=== PATIENT | male | born 1970 | race American Indian/Alaskan Native ===

== ENCOUNTER 2016-07-13 10:17 | Emergency (ER) | payer SELFPAY ==
[2016-07-13 11:32] LABS: Basophils % (Auto) 0.5 % (0.0-1.8); Eosinophils % (Auto) 2.1 % (0.0-4.3); Hematocrit 45.5 % (35.5-45.6); Mean Corpuscular HGB Conc 33 % (32-34); Mean Corpuscular Hemoglobin 30 pg (28-32); Mean Corpuscular Volume 91 fl (84-94); Platelet Count 221 K/mm3 (140-440); Red Blood Count 5.01 M/mm3 (3.65-5.03); Red Cell Distribution Width 12.6 % (13.2-15.2); White Blood Count 5.8 K/mm3 (4.5-11.0)
[2016-07-13 11:37] LABS: Alanine Aminotransferase 13 units/L (7-56); Albumin 3.9 g/dL (3.9-5); Albumin/Globulin Ratio 1.2 %; Alkaline Phosphatase 44 units/L (35-129); Anion Gap 15 mmol/L; Bilirubin,Total 0.4 mg/dL (0.1-1.2); Blood Urea Nitrogen 11 mg/dL (9-20); Calcium 8.8 mg/dL (8.4-10.2); Carbon Dioxide 26 mmol/L (22-30); Chloride 97.7 mmol/L (98-107); Glucose 292 mg/dL (75-100); Lipase 170 units/L (13-60); Potassium 4.2 mmol/L (3.6-5.0); Sodium 134 mmol/L (137-145); Total Protein 7.2 g/dL (6.3-8.2)
[2016-07-13 12:02] LABS: Bacteria,Urine 1+ /HPF (Negative); Bilirubin,Urine NEG (Negative); Blood,Urine NEG (Negative); Ketones,Urine NEG (Negative); Leukocyte Esterase,Urine TR (Negative); Mucus,Urine FEW /HPF; Nitrite,Urine NEG (Negative); Protein,Urine <15 mg/dL mg/dL (Negative); Urobilinogen,Urine < 2.0 mg/dL (<2.0)
--- NOTE | 2016-07-13 17:12 | Emergency Department Report ---
HPI - General Chief Complaint: Abdominal Pain Time Seen by Provider: 07/13/16 16:12 - HPI HPI: This is a 46-year-old -[place] male who presents to the emergency department from home with complaint of some lower abdominal discomfort that started yesterday and occurred today as well but has since resolved. He also complains of some difficulty with urination that on on for "a minute" that is supposed to represent a few months. He says he is able to urinate some but it only dribbles out that he denies any discharge, dysuria, nausea, vomiting, fever , back pain. He has not taken anything for symptoms prior to presentation. He has a past medical history of [id number] diabetes. He recently switched jobs and does not have insurance for another 30 days and therefore does not currently have a primary care doctor. No recent travel or sick contacts at home. ED Past Medical Hx - Past Medical History Previous Medical History?: Yes Hx Diabetes: Yes - Surgical History Past Surgical History?: No - Social History Smoking Status: Never Smoker Substance Use Type: Alcohol ED Review of Systems ROS: Stated complaint: ABD PAIN /FREQUENT URINATION/URINE NOT COMING OUT Other details as noted in HPI Comment: All other systems reviewed and negative Constitutional: denies: chills, fever Eyes: denies: eye pain, eye discharge, vision change ENT: denies: ear pain, throat pain Respiratory: denies: cough, shortness of breath, wheezing Cardiovascular: denies: chest pain, palpitations Gastrointestinal: abdominal pain. denies: nausea, vomiting Genitourinary: other (retention of urine). denies: discharge Musculoskeletal: denies: back pain, joint swelling, arthralgia Skin: denies: rash, lesions Physical Exam - Physical Exam Vital Signs: Vital Signs 07/13/16 10:55 Temperature 98.1 F Pulse Rate 88 Respiratory 18 Rate Blood Pressure 159/109 O2 Sat by Pulse 99 Oximetry Physical Exam: GENERAL: The patient is well-developed well-nourished. HEENT: Normocephalic. Atraumatic. Extraocular motions are intact. Patient has moist mucous membranes. Pupils equal reactive to light bilaterally. NECK: Supple. Trachea is midline. CHEST/LUNGS: Clear to auscultation. There is no respiratory distress noted. HEART/CARDIOVASCULAR: Regular. There is no tachycardia. There is no gallop rub or murmur. ABDOMEN: Abdomen is soft, nontender. Patient has normal bowel sounds. There is no abdominal distention. SKIN: There is no rash. There is no edema. There is no diaphoresis. NEURO: The patient is awake, alert, and oriented. The patient is cooperative. The patient has no focal neurologic deficits. The patient has normal speech. MUSCULOSKELETAL: There is no tenderness or deformity. There is no limitation range of motion. There is no evidence of acute injury. ED Course Vital Signs 07/13/16 10:55 Temperature 98.1 F Pulse Rate 88 Respiratory 18 Rate Blood Pressure 159/109 O2 Sat by Pulse 99 Oximetry ED Medical Decision Making - Lab Data Result diagrams: 07/13/16 11:05 07/13/16 11:05 - Radiology Data Radiology results: report reviewed Bilateral renal and bladder ultrasound does not show any kidney stones, hydronephrosis, bladder abnormalities. - Medical Decision Making 46-year-old male presents with some lower abdominal discomfort that has since resolved and some intermittent and/or chronic difficulty with urination. He has no pain, hematuria and is able to urinate but appears to dribble out sometimes or feels that he is not completely voiding. However the patient was able to easily leave a urine sample here. A bilateral renal and bladder ultrasound was done that does not show any bladder distention due to retained urine or any renal or bladder abnormalities. Vital signs stable throughout his ED course. Patient's labs are unremarkable including no signs of leukocytosis, negative belly labs, no urinary tract infection or significant hematuria. Patient will be discharged home to follow up with primary care and urology. He will be encouraged to return to the ER with any worsening of symptoms or any acute distress. - Differential Diagnosis hydronephrosis, UTI, nephrolithiasis, BPH Critical Care Time: No Critical care attestation.: If time is entered above; I have spent that time in minutes in the direct care of this critically ill patient, excluding procedure time. ED Disposition Clinical Impression: Difficulty urinating Hypertension Qualifiers: Hypertension type: essential hypertension Qualified Code(s): I10 - Essential ( primary) hypertension Abdominal pain Qualifiers: Abdominal location: lower abdomen, unspecified Qualified Code(s): R10.30 - Lower abdominal pain, unspecified Disposition: DISCHARGED TO HOME OR SELFCARE Is pt being admited?: No Condition: Stable Instructions: Hypertension (ED), Abdominal Pain (ED) Additional Instructions: Please follow-up with a primary care doctor in the next few days. Try to stay away from foods that are high in salt and caffeinated products in order to help with your blood pressure. I referral for a local urologist, Dr. Faustin, to follow up regarding your difficulty urinating. Return to the emergency department with any worsening of your symptoms or any acute distress. Referrals: PRIMARY CAREMD [Primary Care Provider] - 3-5 Days ARIANNA FAUSTIN MD [Staff Physician] - 3-5 Days [facility] [Outside] - 3-5 Days Forms: Work/School Release Form(ED)
--- NOTE | 2016-07-13 19:15 | Ultrasound Report ---
FINAL REPORT EXAM: US RENAL BILAT HISTORY: Pain in the lower abdomen. Urinary retention. TECHNIQUE: Ultrasound of the kidneys PRIORS: None. FINDINGS: Examination the kidneys demonstrates both to be normal in size and have normal cortical echogenicity and thickness. The right and left kidneys measure 10.4 cm and 11.9 cm in craniocaudal length, respectively. No evidence for calculi, hydronephrosis, or solid mass is seen in either kidney. The urinary bladder shows no intraluminal abnormality or wall thickening. Incidental note is made of increased echogenicity throughout the liver consistent with a mildly fatty liver. IMPRESSION: Negative ultrasound of the kidneys and bladder. Incidental mild fatty liver
[2016-07-13] MEDS ORDERED: LOPRESSOR PO ONE (19:50)
[2016-07-13 20:26] VITALS: BP 176/101
== END 2016-07-13 20:33 | disposition home or self-care (01) ==
LOC: ED 10:17
DX: R10.30 Lower abdominal pain, unspecified (principal); I10 Essential (primary) hypertension; R30.0 Dysuria; E11.9 Type 2 diabetes mellitus without complications
CPT/HCPCS: 36415; 76770; 80053; 81001; 82962; 83690; 85025

== ENCOUNTER 2017-09-10 09:17 | Inpatient (IN) | payer OTHER ==
[2017-09-10 09:48] LABS: Basophils % (Auto) 0.4 % (0.0-1.8); Eosinophils % (Auto) 0.8 % (0.0-4.3); Hemoglobin 14.5 gm/dl (11.8-15.2); Lymphocytes # (Auto) 1.5 K/mm3 (1.2-5.4); Lymphocytes % (Auto) 24.8 % (13.4-35.0); Mean Corpuscular HGB Conc 34 % (32-34); Mean Corpuscular Hemoglobin 30 pg (28-32); Mean Corpuscular Volume 90 fl (84-94); Monocytes # (Auto) 0.5 K/mm3 (0.0-0.8); Monocytes % (Auto) 7.7 % (0.0-7.3); Platelet Count 185 K/mm3 (140-440); Red Blood Count 4.77 M/mm3 (3.65-5.03); Red Cell Distribution Width 12.3 % (13.2-15.2)
[2017-09-10 10:10] LABS: BUN/Creatinine Ratio 11; Blood Urea Nitrogen 16 mg/dL (9-20); Calcium 8.7 mg/dL (8.4-10.2); Hemolysis Index 4
[2017-09-10] MEDS ORDERED: NACL 0.9% 500 ML 500 ML IV ONE (10:39)
[2017-09-10] MEDS ORDERED: BABY ASPIRIN PO ONE (10:40)
--- NOTE | 2017-09-10 10:40 | Emergency Department Report ---
ED Syncope HPI - General Chief Complaint: Syncope Stated Complaint: SNYCOPE Time Seen by Provider: 09/10/17 10:30 Source: patient, family, RN notes reviewed Exam Limitations: no limitations - History of Present Illness Initial Comments: This is a 47-year-old male who is unknown to this provider previously. Past medical history includes diabetes, hypertension, obesity. He does not have a local primary care doctor and he endorses that he is not currently compliant with his outpatient medications. He presents to the ER with 2 episodes of syncope today. 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 Prior to the event, there was no headache , neck pain, chest pain, abdominal pain, shortness of breath. He reports no convulsive activity that he can recall. After the event, he was getting "checked out" reports that he stood up very quickly, and then "passed out" again. The patient denies DVT, pulmonary embolus risk factors. He denies sudden thunderclap headache, chest pain, neck pain or neck stiffness. Timing/Prior Episodes: multiple episodes today Precipitating Factors: Positive: blurred vision, lightheadedness Context: other (workign) Loss of Consciousness: brief (seconds) Current Symptoms: back to normal, other (patient currently denies all symptoms at this time.). denies: blurred vision, chest pain, diaphoresis, dizziness, headache, injury, lightheadedness, loss of bladder control, loss of bowel control, motionless, nausea, pale, shallow/rapid breathing, weak/absent pulse, weakness - Related Data Allergies/Adverse Reactions: Allergies No Known Allergies Allergy (Unverified 07/13/16 10:55) ED Review of Systems ROS: Stated complaint: SNYCOPE Other details as noted in HPI Comment: All other systems reviewed and negative ED Past Medical Hx - Past Medical History Previous Medical History?: Yes Hx Hypertension: Yes Hx Diabetes: Yes - Surgical History Past Surgical History?: No - Social History Smoking Status: Never Smoker Substance Use Type: None ED Physical Exam - General Limitations: No Limitations General appearance: alert, in no apparent distress - Head Head exam: Present: atraumatic, normocephalic - Eye Eye exam: Present: normal appearance, PERRL, EOMI, other (visual acuity intact to finger counting, color perception, reading at a close distance). Absent: nystagmus - ENT ENT exam: Present: normal exam, normal orophraynx, mucous membranes moist, normal external ear exam - Neck Neck exam: Present: normal inspection, full ROM - Respiratory Respiratory exam: Present: normal lung sounds bilaterally. Absent: respiratory distress - Cardiovascular Cardiovascular Exam: Present: regular rate, normal rhythm, normal heart sounds. Absent: bradycardia, tachycardia, irregular rhythm, systolic murmur, diastolic murmur, rubs, gallop - GI/Abdominal GI/Abdominal exam: Present: soft, normal bowel sounds. Absent: distended, tenderness, guarding, rebound, rigid, pulsatile mass - Rectal Rectal exam: Present: deferred - Extremities Exam Extremities exam: Present: normal inspection, full ROM, normal capillary refill. Absent: tenderness, pedal edema, joint swelling, calf tenderness - Back Exam Back exam: Present: normal inspection, full ROM. Absent: tenderness, CVA tenderness (R), paraspinal tenderness, vertebral tenderness - Neurological Exam Neurological exam: Present: alert, oriented X3, CN II-XII intact, other ( Extraocular movements intact. Tongue midline. No facial droop. Facial sensation intact to light touch in the V1, V2, V3 distribution bilaterally. 5 and 5 strength in 4 extremities.. Sensation is intact to light touch in 4 extremities.). Absent: motor sensory deficit - Psychiatric Psychiatric exam: Present: normal affect, normal mood - Skin Skin exam: Present: warm, dry, intact, normal color. Absent: rash ED Course Vital Signs 09/10/17 09/10/17 09:25 10:16 Temperature 98.4 F Pulse Rate 92 H Respiratory 18 20 Rate Blood Pressure 147/96 O2 Sat by Pulse 99 Oximetry ED Medical Decision Making - Lab Data Result diagrams: 09/10/17 09:34 09/10/17 09:34 Vital Signs 09/10/17 09/10/17 09:25 10:16 Temperature 98.4 F Pulse Rate 92 H Respiratory 18 20 Rate Blood Pressure 147/96 O2 Sat by Pulse 99 Oximetry Lab Results 09/10/17 09/10/17 09/10/17 Range/Units 09:34 09:34 10:49 WBC 6.0 (4.5-11.0) K/mm3 RBC 4.77 (3.65-5.03) M/mm3 Hgb 14.5 (11.8-15.2) gm/dl Hct 43.0 (35.5-45.6) % MCV 90 (84-94) fl MCH 30 (28-32) pg MCHC 34 (32-34) % RDW 12.3 L (13.2-15.2) % Plt Count 185 (140-440) K/mm3 Lymph % (Auto) 24.8 (13.4-35.0) % Haines % (Auto) 7.7 H (0.0-7.3) % Eos % (Auto) 0.8 (0.0-4.3) % Baso % (Auto) 0.4 (0.0-1.8) % Lymph # 1.5 (1.2-5.4) K/mm3 Haines # 0.5 (0.0-0.8) K/mm3 Eos # 0.0 (0.0-0.4) K/mm3 Baso # 0.0 (0.0-0.1) K/mm3 Seg Neutrophils % 66.3 (40.0-70.0) % Seg Neutrophils # 4.0 (1.8-7.7) K/mm3 Sodium 136 L (137-145) mmol/L Potassium 4.3 (3.6-5.0) mmol/L Chloride 97.7 L (98-107) mmol/L Carbon Dioxide 26 (22-30) mmol/L Anion Gap 17 mmol/L BUN 16 (9-20) mg/dL Creatinine 1.5 (0.8-1.5) mg/dL Estimated GFR > 60 ml/min BUN/Creatinine Ratio 11 % Glucose 355 H (75-100) mg/dL Calcium 8.7 (8.4-10.2) mg/dL Magnesium 1.70 (1.7-2.3) mg/dL Troponin T < 0.010 (0.00-0.029) ng/mL TSH (0.270-4.200) mlU/mL 09/10/17 Range/Units 10:49 WBC (4.5-11.0) K/mm3 RBC (3.65-5.03) M/mm3 Hgb (11.8-15.2) gm/dl Hct (35.5-45.6) % MCV (84-94) fl MCH (28-32) pg MCHC (32-34) % RDW (13.2-15.2) % Plt Count (140-440) K/mm3 Lymph % (Auto) (13.4-35.0) % Haines % (Auto) (0.0-7.3) % Eos % (Auto) (0.0-4.3) % Baso % (Auto) (0.0-1.8) % Lymph # (1.2-5.4) K/mm3 Haines # (0.0-0.8) K/mm3 Eos # (0.0-0.4) K/mm3 Baso # (0.0-0.1) K/mm3 Seg Neutrophils % (40.0-70.0) % Seg Neutrophils # (1.8-7.7) K/mm3 Sodium (137-145) mmol/L Potassium (3.6-5.0) mmol/L Chloride (98-107) mmol/L Carbon Dioxide (22-30) mmol/L Anion Gap mmol/L BUN (9-20) mg/dL Creatinine (0.8-1.5) mg/dL Estimated GFR ml/min BUN/Creatinine Ratio % Glucose (75-100) mg/dL Calcium (8.4-10.2) mg/dL Magnesium (1.7-2.3) mg/dL Troponin T (0.00-0.029) ng/mL TSH 1.060 (0.270-4.200) mlU/mL - EKG Data -: EKG Interpreted by [place] EKG shows normal: sinus rhythm - EKG Data When compared to previous EKG there are: previous EKG unavailable 09/10/17 11:45 Nonspecific EKG, not a STEMI, normal axis, atrial enlargements no prior for comparison - Medical Decision Making Differential diagnosis, including but not limited to: Orthostasis, vagal event, heat stroke, heat-related illness, structural cardiac disease, arrhythmia Assessment and plan: 47-year-old male, multiple cardiovascular risk factors, 2 episodes of syncope today, reports working outside in the hot weather, however also reports that he has worked outside in the hot weather previously. No headache or neck pain, no historical features to suggest subarachnoid hemorrhage , has a [place] Coma Scale of 15, with an anion score of 0, unremarkable neurologic examination, and no headache. Therefore, do not feel that patient requires emergent imaging of the brain. No pulmonary embolus or DVT risk factors, low risk by well's criteria, PERC negative. Case was presented to the Hospital physician, Dr. Ferraro, who accepted the patient to the medical service for further evaluation of syncope. Critical care attestation.: If time is entered above; I have spent that time in minutes in the direct care of this critically ill patient, excluding procedure time. ED Disposition Clinical Impression: Syncope Qualifiers: Encounter type: initial encounter Disposition: DC-09 OP ADMIT IP TO THIS HOSP Is pt being admited?: Yes Does the pt Need Aspirin: Yes Condition: Good Instructions: Syncope (ED) Referrals: PRIMARY CARE,MD [Primary Care Provider] - 3-5 Days
[2017-09-10] MEDS ORDERED: D50W (25GM) Syringe IV PRN (13:54)
[2017-09-10] MEDS ORDERED: ZOFRAN IV PRN (13:55)
[2017-09-10] MEDS ORDERED: TYLENOL PO PRN (13:55)
[2017-09-10] MEDS ORDERED: NORCO 5/325 PO PRN (13:55)
[2017-09-10] MEDS ORDERED: REGLAN IV PRN (13:55)
[2017-09-10] MEDS ORDERED: AMBIEN PO PRN (13:55)
[2017-09-10] MEDS ORDERED: MORPHINE IV PRN (13:55)
[2017-09-10] MEDS ORDERED: MIRALAX 3350 PO PRN (13:55)
--- NOTE | 2017-09-10 14:01 | History and Physical Report ---
History of Present Illness Date of examination: 09/10/17 Chief complaint: Passed out History of present illness: Patient is a 47 yo man with a history of hypertension and DM type 2 who presents to [facility] ED with 2 episodes of syncope today. 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 After, he passed out. He doesn't know how long he was unconscious, but spontaneous awoke at some time. He denies any prior episode. He denies, biting his tongue, bladder or bowel incontinent. He denies headaches or chest pains or palpitations. There was no headache, neck pain, chest pain, abdominal pain, shortness of breath. He reports no convulsive activity that he can recall. After the event, he was getting "checked out" and he stood up very quickly, and then "passed out" again. The patient denies DVT, pulmonary embolus risk factors. He denies sudden thunderclap headache, chest pain, neck pain or neck stiffness. 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 SH: nonsmoker, drinks alcohol on occasion every other weekend at the most, no illegal drug use FH: Mother has dm, htn, denies heart attacks or strokes that he is aware of ROS: Constitutional: denies: fever ENT: denies: throat or neck pain Respiratory: denies: cough, shortness of breath Cardiovascular: denies: chest pain Endocrine: denies unexplained weight loss or gain Gastrointestinal: denies: abdominal pain, nausea Genitourinary: denies: dysuria Rectal: denies no incontinence, no bleeding, no itching, no discharge Musculoskeletal: denies swelling, myaglia, muscle weakness Skin: denies: rash Neurological: denies: headache Hematological/Lymphatic: denies: easy bleeding or easy bruising Allergic/Immunologic: no urticaria, no allergic rhinitis, no anaphylaxis Psych: denies sadness or hopelessness, SI/HI Medications and Allergies Allergies Allergy/AdvReac Type Severity Reaction Status Date / Time No Known Allergies Allergy Unverified 07/13/16 10:55 Active Meds: Active Medications Acetaminophen (Tylenol) 650 mg PO Q6H PRN PRN Reason: Non Cardiac Pain or Temp>100.5 Acetaminophen/Hydrocodone Bitart ([place] 5/325) 1 each PO Q4H PRN PRN Reason: Pain, Moderate (4-6) Dextrose (D50w (25gm) Syringe) 50 ml IV PRN PRN PRN Reason: Hypoglycemia Enoxaparin Sodium (Lovenox) 40 mg SUB-Q QDAY DELANO Sodium Chloride (Nacl 0.45% 1000 Ml) 1,000 mls @ 100 mls/hr IV DIRECT DELANO Insulin Human Lispro (Humalog) 0 unit SUB-Q ACHS DELANO; Protocol Metoclopramide HCl (Reglan) 10 mg IV Q8H PRN PRN Reason: Nausea And Vomiting Morphine Sulfate (Morphine) 2 mg IV Q4H PRN PRN Reason: Pain , Severe (7-10) Ondansetron HCl (Zofran) 4 mg IV Q4H PRN PRN Reason: Nausea And Vomiting Pantoprazole Sodium (Protonix) 40 mg PO QDAY DELANO Polyethylene Glycol (Miralax 3350) 17 gm PO QDAY PRN PRN Reason: Constipation Zolpidem Tartrate (Ambien) 5 mg PO QHS PRN PRN Reason: Sleep Exam - Physical Exam Narrative exam: GEN: WDWN, NAD, Awake, Alert, Orientated x 3 HEENT: NCAT, EOMI, PERRL, OP Clear NECK: supple, no adenopathy, no thyromegaly, no JVD CVS/HEART: RRR, normal S1S2, pulses present bilaterally CHEST/LUNGS: CTA B, Symmetrical chest expansion, good air entry bilaterally GI/Abdomen: soft, NTND, good bowel sounds, no guarding or rebound /Bladder: no suprapubic tenderness, no CVA or paraspinal tenderness EXT/Skin: no c/c/e, no obvious rash. mmm slightly dry MSK: FROM x 4 Neuro: CN 2-12 grossly intact, no new focal deficits Psych: calm - Constitutional Vitals: Temp Pulse Resp BP Pulse Ox 97.9 F 82 18 176/114 97 09/10/17 11:28 09/10/17 11:28 09/10/17 11:28 09/10/17 11:28 09/10/17 11:28 Results - Labs CBC & Chem 7: 09/10/17 09:34 09/10/17 09:34 Labs: Abnormal lab results 09/10/17 09/10/17 Range/Units 09:34 09:34 RDW 12.3 L (13.2-15.2) % Cherry % (Auto) 7.7 H (0.0-7.3) % Sodium 136 L (137-145) mmol/L Chloride 97.7 L (98-107) mmol/L Glucose 355 H (75-100) mg/dL Assessment and Plan Patient is a 47 yo man with a history of hypertension and DM type 2 who presents to [facility] ED with 2 episodes of syncope today. 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 After, he passed out. He doesn't know how long he was unconscious, but spontaneous awoke at some time. He denies any prior episode. He denies, biting his tongue, bladder or bowel incontinent. He denies headaches or chest pains or palpitations. There was no headache, neck pain, chest pain, abdominal pain, shortness of breath. He reports no convulsive activity that he can recall. After the event, he was getting "checked out" and he stood up very quickly, and then "passed out" again. The patient denies DVT, pulmonary embolus risk factors. He denies sudden thunderclap headache, chest pain, neck pain or neck stiffness. -Syncope, appears autonomic dysfunction: admit, remote telemetry, get orthostatics, CTH (because he may have hit his head), carotid doppler, Echo -Uncontrolled hypertension with urgency: give iv hydralazine -Uncontrolled DM type 2 with hyperglycemia: add ssi, ada, a1c -Hyponatremia, dehydration/hyposm: ivf, but not nss due to uncontrolled hypertension -DVT prophylaxis: sq heparin full code check d-dimer carotid doppler a1c ct head orthostatic Echo
--- NOTE | 2017-09-10 14:58 | Cat Scan Report ---
CT HEAD WITHOUT CONTRAST INDICATION: Head trauma after syncope. COMPARISON: None similar. FINDINGS: Noncontrast head CT demonstrates normal ventricles and sulci. Few small lacunar infarcts may be noted as approximately 0.7 cm in the left basal ganglia, axial image 21, series 2. No definite acute infarct, hemorrhage, mass effect or midline shift. No abnormal extra axial fluid collections. Normal posterior fossa with preserved basilar cisterns. Normal imaged eye globes. Mild bilateral ethmoid and slight sphenoid sinusitis. Clear remainder imaged paranasal sinuses and mastoid air cells. Intact calvarium. Normal scalp. Few radiopaque dental fillings. CONCLUSION: No acute intracranial CT abnormality with mild sinusitis noted, as described. Thank you for the opportunity to participate in this patient's care.
[2017-09-10] MEDS: NORVASC PO SCH (18:43)
[2017-09-10] MEDS: LOPRESSOR PO SCH ×2 (18:43→22:12)
[2017-09-10] MEDS: NACL 0.45% 1000 ML 1,000 ML IV SCH (18:44)
[2017-09-10] MEDS: HumaLOG SUB-Q SCH ×2 (18:44→21:56)
[2017-09-11] MEDS: NACL 0.45% 1000 ML 1,000 ML IV SCH ×2 (04:48→17:32)
[2017-09-11 07:48] LABS: Hematocrit 42.3 % (35.5-45.6); Hemoglobin 14.2 gm/dl (11.8-15.2); Mean Corpuscular HGB Conc 34 % (32-34); Mean Corpuscular Hemoglobin 30 pg (28-32); Mean Corpuscular Volume 91 fl (84-94); Platelet Count 205 K/mm3 (140-440); Red Blood Count 4.67 M/mm3 (3.65-5.03); Red Cell Distribution Width 12.3 % (13.2-15.2)
[2017-09-11] MEDS: HumaLOG SUB-Q SCH ×4 (09:11→21:49)
[2017-09-11 09:53] LABS: Alanine Aminotransferase 11 units/L (7-56); Albumin 3.4 g/dL (3.9-5); BUN/Creatinine Ratio 12; Blood Urea Nitrogen 13 mg/dL (9-20); Calcium 8.7 mg/dL (8.4-10.2); Chol/HDL Ratio 4.35 %; HDL Cholesterol 45 mg/dL (40-59); Hemolysis Index 0; LDL Cholesterol,Direct 147 mg/dL (50-130)
[2017-09-11] MEDS: LOPRESSOR PO SCH ×2 (10:44→21:48)
[2017-09-11] MEDS: NORVASC PO SCH (10:45)
[2017-09-11] MEDS: LOVENOX SUB-Q SCH (10:46)
[2017-09-11] MEDS: PROTONIX PO SCH (10:46)
--- NOTE | 2017-09-11 13:49 | Progress Note ---
Assessment and Plan Patient is a 47 yo man with a history of hypertension and DM type 2 who presents to [facility] ED with 2 episodes of syncope today. 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 After, he passed out. He doesn't know how long he was unconscious, but spontaneous awoke at some time. He denies any prior episode. He denies, biting his tongue, bladder or bowel incontinent. He denies headaches or chest pains or palpitations. There was no headache, neck pain, chest pain, abdominal pain, shortness of breath. He reports no convulsive activity that he can recall. After the event, he was getting "checked out" and he stood up very quickly, and then "passed out" again. The patient denies DVT, pulmonary embolus risk factors. He denies sudden thunderclap headache, chest pain, neck pain or neck stiffness. -Syncope, appears autonomic dysfunction:remote telemetry, get orthostatics, CT head was unremarkable. (because he may have hit his head), carotid doppler reports pending, Echo normal left ventricular function with ejection fraction of 50 - 55% -Uncontrolled hypertension with urgency: give iv hydralazine Commands are antihypertensive -Uncontrolled DM type 2 with hyperglycemia: A1c 11% Continue ssi, ada, a1c -Hyponatremia, dehydration/hyposm: ivf, but not nss due to uncontrolled hypertension -DVT prophylaxis: sq heparin full code Subjective Date of service: 09/11/17 Principal diagnosis: ophthalmic dysfunction, type 2 diabetes mellitus, hyponatremia, dehydration Interval history: Patient seen and examined. No syncope, no definite events. Denies any fever. Objective - Exam Narrative Exam: Constitutional: Well-nourished well-developed. In no distress Head: Normocephalic atraumatic Eyes: Pupils are equal round and reactive to light Nose: No enlarged turbinates, no septal deviation. Mouth: Moist mucous membranes. Neck: Supple no thyromegaly. No bruit. No JVD Heart: Regular rate and rhythm, S1-S2 abnormal. No rubs murmurs or gallop Lungs: Clear to auscultation bilaterally no rales or rhonchi Abdomen: Soft, nontender. Bowel sound are present. Extremities: No edema no cyanosis and no clubbing. Neuro: Alert oriented Oriented x3. No focal sensory or motor deficit. Skin: No rashes no hyperemic spots Psychiatry: Euthymic. Calm. - Constitutional Vitals: Vital Signs - 12hr 09/11/17 09/11/17 09/11/17 04:26 07:41 07:49 Temperature 98.5 F 98.0 F 98 F Pulse Rate 71 72 72 Respiratory 18 16 15 Rate Blood Pressure 156/95 143/90 Blood Pressure [Left] Blood Pressure 145/99 [Right] O2 Sat by Pulse 99 97 99 Oximetry 09/11/17 09/11/17 09/11/17 07:53 10:44 10:45 Temperature 97.8 F Pulse Rate 73 73 73 Respiratory 15 Rate Blood Pressure 154/103 154/103 Blood Pressure 154/103 [Left] Blood Pressure [Right] O2 Sat by Pulse 98 Oximetry - Labs CBC & Chem 7: 09/11/17 05:59 09/11/17 05:59 Labs: Abnormal lab results 09/10/17 09/10/17 09/10/17 Range/Units 15:08 18:01 21:20 RDW (13.2-15.2) % Glucose (75-100) mg/dL POC Glucose 242 H 349 H (70-105) Hemoglobin A1c 11.0 H (4-6) % Albumin (3.9-5) g/dL LDL Cholesterol Direct (50-130) mg/dL 09/11/17 09/11/17 09/11/17 Range/Units 05:22 05:59 05:59 RDW 12.3 L (13.2-15.2) % Glucose 195 H (75-100) mg/dL POC Glucose 188 H (70-105) Hemoglobin A1c (4-6) % Albumin 3.4 L (3.9-5) g/dL LDL Cholesterol Direct 147 H (50-130) mg/dL 09/11/17 Range/Units 11:29 RDW (13.2-15.2) % Glucose (75-100) mg/dL POC Glucose 256 H (70-105) Hemoglobin A1c (4-6) % Albumin (3.9-5) g/dL LDL Cholesterol Direct (50-130) mg/dL
[2017-09-11] MEDS: KCL 10MEQ/100ML 10 MEQ/100 ML BAG IV SCH ×2 (17:33→21:39)
[2017-09-11] MEDS ORDERED: K-DUR PO ONE (20:00)
[2017-09-11] MEDS ORDERED: LANTUS SUB-Q SCH (22:00)
[2017-09-12] MEDS: NACL 0.45% 1000 ML 1,000 ML IV SCH (04:06)
[2017-09-12 05:58] LABS: Basophils % (Auto) 0.4 % (0.0-1.8); Eosinophils # (Auto) 0.1 K/mm3 (0.0-0.4); Eosinophils % (Auto) 1.5 % (0.0-4.3); Hematocrit 44.2 % (35.5-45.6); Hemoglobin 14.7 gm/dl (11.8-15.2); Lymphocytes # (Auto) 2.2 K/mm3 (1.2-5.4); Lymphocytes % (Auto) 36.4 % (13.4-35.0); Mean Corpuscular HGB Conc 33 % (32-34); Mean Corpuscular Hemoglobin 30 pg (28-32); Mean Corpuscular Volume 89 fl (84-94); Monocytes # (Auto) 0.6 K/mm3 (0.0-0.8); Monocytes % (Auto) 9.4 % (0.0-7.3); Platelet Count 216 K/mm3 (140-440); Red Blood Count 4.98 M/mm3 (3.65-5.03); Red Cell Distribution Width 12.2 % (13.2-15.2)
[2017-09-12 06:18] LABS: Alanine Aminotransferase 11 units/L (7-56); Albumin 3.6 g/dL (3.9-5); BUN/Creatinine Ratio 8; Blood Urea Nitrogen 9 mg/dL (9-20); Calcium 9.1 mg/dL (8.4-10.2); Hemolysis Index 6
[2017-09-12 08:25] VITALS: BP 138/81
[2017-09-12] MEDS: HumaLOG SUB-Q SCH ×2 (10:25→13:34)
[2017-09-12] MEDS: LOVENOX SUB-Q SCH (10:26)
[2017-09-12] MEDS: LOPRESSOR PO SCH (10:26)
[2017-09-12] MEDS: NORVASC PO SCH (10:26)
[2017-09-12] MEDS: PROTONIX PO SCH (10:27)
--- NOTE | 2017-09-12 12:35 | Discharge Summary ---
Providers - Providers Date of Admission: 09/10/17 13:49 Date of discharge: 09/12/17 Attending physician: WINTER RUBIO Primary care physician: DIESEL ENGINE INSPECTOR Hospitalization Condition: Stable Hospital course: Patient is a 47 yo man with a history of hypertension and DM type 2 who presents to [facility] ED with 2 episodes of syncope today. 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 After, he passed out. He doesn't know how long he was unconscious, but spontaneous awoke at some time. He denies any prior episode. He denies, biting his tongue, bladder or bowel incontinent. He denies headaches or chest pains or palpitations. There was no headache, neck pain, chest pain, abdominal pain, shortness of breath. He reports no convulsive activity that he can recall. After the event, he was getting "checked out" and he stood up very quickly, and then "passed out" again. The patient denies DVT, pulmonary embolus risk factors. He denies sudden thunderclap headache, chest pain, neck pain or neck stiffness. -Syncope, appears autonomic dysfunction, orthostatics, -Uncontrolled hypertension with urgency: give iv hydralazine -Uncontrolled DM type 2 with hyperglycemia: add ssi, ada, a1c -Hyponatremia, dehydration/hyposm: ivf, but not nss due to uncontrolled hypertension -Acute maxillary sinusitis: claritin, flonase, abx -DVT prophylaxis: sq heparin full code check d-dimer==>normal carotid doppler==> unremarkable prelim a1c==> 11.0 (very poorly controlled) ct head==>normal, mild sinusitits orthostatic vitals positive on admission 2D Echo mild concentric LVF, est EF 50-55% Noncompliance: education done, counseling done. Disposition: DC TO HOME OR SELFCARE Time spent for discharge: 32 minutes Core Measure Documentation - Palliative Care Palliative Care/ Comfort Measures: Not Applicable - Core Measures Any of the following diagnoses?: none - VTE Discharge Requirements Deep Vein Thrombosis/Pulmonary Embolism Present on Admission: No Has pt received <5 days of overlap therapy or INR<2.0: No Anticoagulant overlap therapy prescribed at discharge: No Contraindication No Overlap Therapy order at DC: Not Indicated Exam - Physical Exam Narrative exam: GEN: WDWN, NAD, Awake, Alert, Orientated x 3 HEENT: NCAT, EOMI, PERRL, OP Clear NECK: supple, no adenopathy, no thyromegaly, no JVD CVS/HEART: RRR, normal S1S2, pulses present bilaterally CHEST/LUNGS: CTA B, Symmetrical chest expansion, good air entry bilaterally GI/Abdomen: soft, NTND, good bowel sounds, no guarding or rebound /Bladder: no suprapubic tenderness, no CVA or paraspinal tenderness EXT/Skin: no c/c/e, no obvious rash. mmm slightly dry MSK: FROM x 4 Neuro: CN 2-12 grossly intact, no new focal deficits Psych: calm - Constitutional Vitals: Temp Pulse Resp BP Pulse Ox 97.6 F 71 18 138/81 97 09/12/17 07:19 09/12/17 10:26 09/12/17 07:19 09/12/17 10:26 09/12/17 07:19 Plan Activity: other (no strenous activity until cleared by pcp, make first available appointment) Diet: low salt, diabetic Special Instructions: record daily BP diary, record blood sugar diary (three times per day) Follow up with: PRIMARY CARE,MD [Primary Care Provider] - 3-5 Days Prescriptions: Acetaminophen [Acetaminophen TAB] 650 mg PO Q6H PRN #30 tablet PRN Reason: Non Cardiac Pain Or Temp>100.5 amLODIPine [Norvasc] 10 mg PO QDAY #30 tablet Azithromycin [Zithromax Z-CHUCKY] 1 dose PO DAILY #1 pack Fluticasone [Flonase] 1 spray NS QDAY #1 bottle Insulin NPH/Regular [Novolin 70/30] 14 unit SQ BIDDIAB #100 ml Lispro Insulin [Humalog] 1 dose SUB-Q ACHS PRN #100 units PRN Reason: Hyperglycemia Loratadine [Claritin] 10 mg PO DAILY #30 tablet Metoprolol [Lopressor TAB] 25 mg PO BID #60 tablet
== END 2017-09-12 15:50 | disposition home or self-care (01) | DRG 74 ==
LOC: ED 09:17 → 3A 13:49
PROVIDERS: ADMIT Internal Medicine; ATTEND Internal Medicine
DX: G90.8 Other disorders of autonomic nervous system (principal); E87.1 Hypo-osmolality and hyponatremia; I10 Essential (primary) hypertension; I16.0 Hypertensive urgency; E11.65 Type 2 diabetes mellitus with hyperglycemia; J01.00 Acute maxillary sinusitis, unspecified; E83.42 Hypomagnesemia; E66.9 Obesity, unspecified; Z68.30 Body mass index [BMI] 30.0-30.9, adult
CPT/HCPCS: 36415; 70450; 80048; 80053; 80061; 82962; 83036; 83735; 84443; 84484; 85025; 85027; 85379; 93005; 93010; 93306; 93880; J1650; J1815; J3480; J7040

== ENCOUNTER 2020-12-19 00:15 | Emergency (ER) | payer SELFPAY ==
--- NOTE | 2020-12-19 02:06 | Emergency Department Report ---
HPI - General Chief Complaint: Syncope Time Seen by Provider: 12/19/20 01:30 - HPI HPI: 50-year-old -[place] male presents to the emergency department via EMS from home after he had a syncopal episode. The patient has been dealing with some diarrhea and says that he was sitting on the toilet earlier in the evening when he suddenly became very hot and lightheaded. He stood up and "the next thing I know I had fallen into the bathtub." At the time of my examination he is awake, alert, oriented, AAO x3. He has no complaints of any headache, back pain, chest pain, abdominal pain and essentially feels that he is at his baseline. The patient had a stroke about 2 months ago that left him with some mild left-sided weakness and disequilibrium. He also has a history of CHF, diabetes, hypertension. ED Past Medical Hx - Past Medical History Hx Hypertension: Yes Hx CVA: Yes Hx Congestive Heart Failure: Yes Hx Diabetes: Yes - Social History Smoking Status: Never Smoker - Medications Home Medications: Home Medications Medication Instructions Recorded Confirmed Last Taken Type Acetaminophen [Acetaminophen TAB] 650 mg PO Q6H PRN #30 tablet 09/12/17 Unknown Rx Azithromycin [Zithromax Z-CHUCKY] 1 dose PO DAILY #1 pack 09/12/17 Unknown Rx Fluticasone [Flonase] 1 spray NS QDAY #1 bottle 09/12/17 Unknown Rx Insulin NPH/Regular [Novolin 70/30] 14 unit SQ BIDDIAB #100 ml 09/12/17 Unknown Rx Lispro Insulin [HumaLOG] 1 dose SUB-Q ACHS PRN #100 units 09/12/17 Unknown Rx Loratadine (Nf) [Claritin] 10 mg PO DAILY #30 tablet 09/12/17 Unknown Rx Metoprolol [Lopressor TAB] 25 mg PO BID #60 tablet 09/12/17 Unknown Rx amLODIPine 10 mg PO QDAY #30 tablet 09/12/17 Unknown Rx ED Review of Systems ROS: Stated complaint: SYNCOPAL EPISODE Other details as noted in HPI Comment: All other systems reviewed and negative Constitutional: denies: chills, fever Eyes: denies: eye pain, vision change ENT: denies: ear pain, throat pain Respiratory: denies: cough, shortness of breath Cardiovascular: syncope. denies: chest pain, palpitations Gastrointestinal: diarrhea. denies: vomiting Genitourinary: denies: dysuria, discharge Musculoskeletal: denies: back pain, arthralgia Skin: denies: rash, lesions Neurological: denies: headache, numbness Physical Exam - Physical Exam Vital Signs: Vital Signs 12/19/20 12/19/20 00:44 00:51 Temperature 98.6 F 98.1 F Pulse Rate 99 H 90 Respiratory 18 16 Rate Blood Pressure 118/72 156/106 [Left] O2 Sat by Pulse 99 98 Oximetry Physical Exam: GENERAL: The patient is well-developed well-nourished. HENT: Normocephalic. Atraumatic. Patient has moist mucous membranes. EYES: Extraocular motions are intact. No nystagmus. NECK: Supple. Trachea is midline. CHEST/LUNGS: Clear to auscultation. There is no respiratory distress noted. HEART/CARDIOVASCULAR: Regular. There is no tachycardia. There is no murmur. ABDOMEN: Abdomen is soft, nontender. Patient has normal bowel sounds. SKIN: Skin is warm and dry. NEURO: The patient is awake, alert, and oriented. The patient is cooperative. The patient has no focal neurologic deficits. Normal speech. Cranial nerves II through XII grossly intact. No pronator drift or dysmetria. MUSCULOSKELETAL: There is no tenderness or deformity. There is no limitation range of motion. ED Course Vital Signs 12/19/20 12/19/20 00:44 00:51 Temperature 98.6 F 98.1 F Pulse Rate 99 H 90 Respiratory 18 16 Rate Blood Pressure 118/72 156/106 [Left] O2 Sat by Pulse 99 98 Oximetry ED Medical Decision Making - Lab Data Result diagrams: 12/19/20 02:32 12/19/20 02:32 Lab Results 12/19/20 12/19/20 12/19/20 Range/Units 02:32 02:32 02:32 WBC 11.6 H (4.5-11.0) K/mm3 RBC 4.49 (3.65-5.03) M/mm3 Hgb 13.9 (11.8-15.2) gm/dl Hct 40.5 (35.5-45.6) % MCV 90 (84-94) fl MCH 31 (28-32) pg MCHC 34 (32-34) % RDW 12.7 L (13.2-15.2) % Plt Count 220 (140-440) K/mm3 Lymph % (Auto) 12.5 L (13.4-35.0) % [place] % (Auto) 5.4 (0.0-7.3) % Eos % (Auto) 0.3 (0.0-4.3) % Baso % (Auto) 0.4 (0.0-1.8) % Lymph # (Auto) 1.4 (1.2-5.4) K/mm3 [place] # (Auto) 0.6 (0.0-0.8) K/mm3 Eos # (Auto) 0.0 (0.0-0.4) K/mm3 Baso # (Auto) 0.0 (0.0-0.1) K/mm3 Seg Neutrophils % 81.4 H (40.0-70.0) % Seg Neutrophils # 9.4 H (1.8-7.7) K/mm3 Sodium 138 (137-145) mmol/L Potassium 4.8 (3.6-5.0) mmol/L Chloride 102.7 (98-107) mmol/L Carbon Dioxide 27 (22-30) mmol/L Anion Gap 13 mmol/L BUN 11 (9-20) mg/dL Creatinine 1.4 H (0.8-1.3) mg/dL Estimated GFR > 60 ml/min BUN/Creatinine Ratio 8 % Glucose 192 H (75-100) mg/dL Calcium 9.6 (8.4-10.2) mg/dL Magnesium 1.90 (1.7-2.3) mg/dL Total Bilirubin 0.50 (0.1-1.2) mg/dL AST 12 (5-40) units/L ALT 7 (7-56) units/L Alkaline Phosphatase 46 (35-129) units/L Troponin T 0.010 (0.00-0.029) ng/mL Total Protein 7.9 (6.3-8.2) g/dL Albumin 4.1 (3.9-5) g/dL Albumin/Globulin Ratio 1.1 % TSH 5.740 H (0.270-4.200) mlU/mL - EKG Data -: EKG Interpreted by Mi EKG shows normal: sinus rhythm, axis, intervals, QRS complexes (LVH), ST-T waves (There are some flattening of the T waves) Rate: normal - EKG Data When compared to previous EKG there are: no significant change Interpretation: unchanged when compared t (09/10/17) - Medical Decision Making This patient presents to the emergency department after having a syncopal episode at home prior to presentation. At the time of my initial examination the patient is sleepy but easily arousable. He is AAO x3. He does not have any focal, motor or sensory deficits and his cranial nerves are intact. Labs have been mostly unremarkable including CBC, metabolic panel, negative troponin, but there may be some mild hypothyroidism with a TSH level of 5.7. The patient has been reevaluated multiple times over more than 5 hours and has not had any further syncopal episodes. The patient appears to be positive for orthostatics with a 30 point drop in the systolic blood pressure from laying to standing. However the patient also had some episodes of severe hypertension so he did not appear to require IV fluid resuscitation. He was given a dose of hydralazine and his blood pressure came down to a more reasonable level. The patient was ambulatory in the emergency department and both appears and feels stable. Patient appears safe for discharge home at this time. He has been instructed to follow-up with his primary care physician and return to the emergency department with any worsening of his symptoms or with any acute distress. Critical Care Time: No Critical care attestation.: If time is entered above; I have spent that time in minutes in the direct care of this critically ill patient, excluding procedure time. ED Disposition Clinical Impression: Syncope, Hypertension Disposition: 01 HOME / SELF CARE / HOMELESS Is pt being admited?: No Condition: Stable Instructions: Syncope, Hypertension, Adult, Syncope (ED), Hypertension (ED) Additional Instructions: Please follow-up with your primary care physician in the next few days. Return to the closest emergency department with any further episodes of passing out, development of chest pain or shortness of breath, development of any strokelike symptoms, new or concerning symptoms not addressed during this emergency department visit, or with any acute distress. Referrals: PRIMARY CARE, [Primary Care Provider] - 2-3 Days Time of Disposition: 05:37
[2020-12-19 03:02] LABS: Basophils % (Auto) 0.4 % (0.0-1.8); Eosinophils % (Auto) 0.3 % (0.0-4.3); Hematocrit 40.5 % (35.5-45.6); Hemoglobin 13.9 gm/dl (11.8-15.2); Lymphocytes # (Auto) 1.4 K/mm3 (1.2-5.4); Lymphocytes % (Auto) 12.5 % (13.4-35.0); Mean Corpuscular HGB Conc 34 % (32-34); Mean Corpuscular Volume 90 fl (84-94); Monocytes # (Auto) 0.6 K/mm3 (0.0-0.8); Monocytes % (Auto) 5.4 % (0.0-7.3); Platelet Count 220 K/mm3 (140-440); Red Blood Count 4.49 M/mm3 (3.65-5.03); Red Cell Distribution Width 12.7 % (13.2-15.2)
[2020-12-19 03:22] LABS: Alanine Aminotransferase 7 units/L (7-56); Albumin 4.1 g/dL (3.9-5); BUN/Creatinine Ratio 8; Blood Urea Nitrogen 11 mg/dL (9-20); Calcium 9.6 mg/dL (8.4-10.2); Hemolysis Index 5
[2020-12-19] MEDS ORDERED: hydrALAZINE 20 MG/1 ML INJ IV ONE (04:54)
[2020-12-19 05:43] VITALS: BP 173/97
--- NOTE | 2020-12-21 11:14 | Electrocardiograph Report ---
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
== END 2020-12-19 06:30 | disposition home or self-care (01) ==
LOC: ED 00:15
DX: I50.9 Heart failure, unspecified (principal); R55 Syncope and collapse; I11.0 Hypertensive heart disease with heart failure; Z86.73 Personal history of transient ischemic attack (TIA), and cerebral infarction without residual deficits; E11.8 Type 2 diabetes mellitus with unspecified complications
CPT/HCPCS: 36415; 80053; 83735; 84443; 84484; 85025; 93005; 96374; 99284; J0360

== ENCOUNTER 2021-09-04 13:12 | Inpatient (IN) | payer OTHER ==
--- NOTE | 2021-09-04 13:59 | Cat Scan Report ---
CT head without contrast INDICATION : CODE STROKE ER Stroke symptoms WEAKNESS. TECHNIQUE: Axial imaging performed from the skull apex through the skull base without the use of con trast. All CT scans at this location are performed using CT dose reduction for ALARA by means of aut omated exposure control. COMPARISON: CT head from 09/10/2017 FINDINGS: Parenchyma: No acute intracranial hemorrhage or parenchymal abnormality. Periventricular hypodensiti es again seen most likely in keeping with microangiopathy. Ventricles: Ventricles are normal in size and appear symmetric. Soft tissues: Soft tissues including the orbits appear normal. Bones: No acute osseous abnormality. Sinuses: Sinuses and mastoid air cells are clear. IMPRESSION: No acute abnormality. COMMUNICATION: Time of Communication (ENAMEL BUFFER/CDT): 12:55 PM Licensed Practitioner Receiving Report: Dr. Taylor Signer Name: Olman Baca MD Signed: 09/04/2021 1:55 PM Workstation Name: [id number]
--- NOTE | 2021-09-04 14:14 | Cat Scan Report ---
CT angio head INDICATION / CLINICAL INFORMATION: 51 years Male; stroke sx weakness omnipaque 350 100ml. TECHNIQUE: Thin cut axial images obtained through the head during IV bolus contrast administration. S agittal, coronal, and 3 plane MIP reconstructions performed by the technologist. NASCET type criteria used evaluate stenoses. Automated exposure control utilized for radiation reduction purposes. . COMPARISON: None available. FINDINGS: INTERNAL CAROTID ARTERIES: Areas of mild narrowing are seen in the cavernous and communicating portio ns of the right internal carotid artery. There is a focal area of moderate narrowing seen in the mid cavernous portion of the right internal carotid artery as well. Note, the left internal carotid artery is dominant when compared with the right. VERTEBROBASILAR SYSTEM: No significant narrowing appreciated. DISTAL BRANCHES: Distal branches of the anterior, middle, and posterior cerebral arteries are fairly symmetric in appearance and number. A1 segment on the right is hypoplastic. There is a small area of mild narrowing in the right P2 region. ANEURYSM: None identified. ADDITIONAL FINDINGS: Remainder of the surrounding soft tissues are grossly normal. IMPRESSION: 1. Significant narrowing seen in the cavernous portion of the internal carotid artery on the right. 2. No large vessel occlusion appreciated. Signer Name: Macario Martin MD, III Signed: 09/04/2021 2:10 PM Workstation Name: [id number]
--- NOTE | 2021-09-04 14:19 | Cat Scan Report ---
CT angio neck INDICATION / CLINICAL INFORMATION: 51 years Male; stroke sx weakness omnip 350 100ml. TECHNIQUE: Thin cut axial images obtained through the head during IV bolus contrast administration. S agittal, coronal, and 3 plane MIP reconstructions performed by the technologist. NASCET type criteria used evaluate stenoses. All CT scans at this location are performed using CT dose reduction for ALAR A by means of automated exposure control. . Mild motion artifact. COMPARISON: None available. FINDINGS: ARCH: Bovine arch configuration noted. CAROTID ARTERIES: The visualized common and internal carotid arteries are patent. Mild narrowing seen at the origin of the left internal carotid artery - not felt to be hemodynamically significant. VERTEBRAL ARTERIES: Right dominant vertebral system seen. No significant stenosis appreciated on the right. A few areas of mild narrowing are seen in the nondominant left vertebral artery. ADDITIONAL FINDINGS: Poor dentition noted. IMPRESSION: No hemodynamically significant stenosis appreciated on this CTA of the neck. Signer Name: Macario Martin MD, III Signed: 09/04/2021 2:15 PM Workstation Name: [email or web address]
[2021-09-04] MEDS ORDERED: ASPIRIN 325 MG TAB PO ONE (14:26)
[2021-09-04 14:27] LABS: Basophils % (Auto) 0.3 % (0.0-1.8); Eosinophils % (Auto) 0.4 % (0.0-4.3); Hematocrit 41.1 % (35.5-45.6); Hemoglobin 13.9 gm/dl (11.8-15.2); Lymphocytes # (Auto) 1.1 K/mm3 (1.2-5.4); Lymphocytes % (Auto) 15.8 % (13.4-35.0); Mean Corpuscular HGB Conc 34 % (32-34); Mean Corpuscular Volume 91 fl (84-94); Monocytes # (Auto) 0.4 K/mm3 (0.0-0.8); Monocytes % (Auto) 6.3 % (0.0-7.3); Platelet Count 209 K/mm3 (140-440); Red Blood Count 4.51 M/mm3 (3.65-5.03); Red Cell Distribution Width 12.5 % (13.2-15.2)
[2021-09-04 14:34] LABS: INR 1.06 (0.87-1.13); Partial Thromboplastin Time 26.4 Sec. (24.2-36.6); Thrombin Time 16.8 Sec. (15.1-19.6)
[2021-09-04 14:42] LABS: Creatine Kinase MB 2.9 ng/mL (0.0-4.0)
[2021-09-04 14:43] LABS: Alanine Aminotransferase < 5 units/L (7-56); Albumin 3.8 g/dL (3.9-5); BUN/Creatinine Ratio 9; Blood Urea Nitrogen 13 mg/dL (9-20); Calcium 9.3 mg/dL (8.4-10.2); Hemolysis Index 2
--- NOTE | 2021-09-04 14:51 | Emergency Department Report ---
Blank Doc - Documentation Documentation: [facility] Consult Note # Demographics Consult Type: Acute Stroke Level 1 (0-4.5 hrs) Patient Location: Emergency Room First Name: Feliz Last Name: Chepe Date of : 1970 Age: 51 Gender: Male Facility: [facility] Time of Initial Page ( Time): 09/04/2021, 13:24 Time of Return Call (Eastern Time): 09/04/2021, 13:24 # HPI History: 51 year old male with hx of stroke, baseline left sided weakness who was washing dishes and felt his left arm wasnt working as well. He then felt his left leg to get weak also. Now almost back to baseline. Last Known Normal: 1 hours ago Duration: almost resolved # Scores Level of Consciousness 1a: [0] = Alert; keenly responsive LOC Questions 1b: [0] = Answers both questions correctly LOC Commands 1c: [0] = Performs both tasks correctly Best Gaze 2: [0] = Normal Visual 3: [0] = No visual loss Facial Palsy 4: [0] = Normal symmetrical movements Motor Arm Left 5a: [0] = No drift Motor Arm Right 5b: [0] = No drift Motor Leg Left 6a: [1] = Drift Motor Leg Right 6b: [0] = No drift Limb Ataxia 7: [0] = Absent Sensory 8: [0] = Normal Best Language 9: [0] = No aphasia Dysarthria 10: [0] = Normal Extinction and Inattention 11: [0] = No abnormality NIHSS Total: 1 # PMH-FH-SH Past Medical History: coronary artery disease stroke Medications: unable to tell me what he takes # Data Head CT: no bleed per radiologist read # Assessment Impression: Patient is hx of stroke effecting left side now with new symptoms on left that have since almost resolved. Residual baseline weakness. Not tpa candidate. Concern for recrudesce of symptoms due to another stressors vs acute on subacute stroke. Recommend TIA work up. If noted any LVO on CTA, recommend urgent IR consult. # Plan Thrombolytic/Intervention: NOT IV Thrombolysis or IA Intervention candidate Thrombolytic Exclusion: almost resolved Intraarterial Exclusion: non-disabling Blood Pressure Management: IV fluid bolus Target Blood Pressure: SBP < 220 DBP < 105 Labs: CBC comprehensive metabolic panel hemoglobin A1c lipid panel troponin TSH urine drug screen ua Imaging: (urgency: STAT): CT Head without contrast CT Angiogram Head and CT Angiogram Neck Imaging: (urgency: routine): MRI Brain without contrast Diagnostic Test: echo with bubble study Therapy/Evaluation: NPO until swallow evaluation PT/OT evaluation speech/swallow consultation Medication: aspirin 81 mg PLUS clopidogrel (Plavix) 75 mg for 21 days, then monotherapy therafter start statin with goal of LDL < 70 unclear what pt takes at home. If on anticoagulation then do not start antiplatelet agents Other: If patient has any neurological deterioration please call me back immediately permissive hypertension telemetry monitoring I have discussed my recommendations with the referring provider Disposition: admit
--- NOTE | 2021-09-04 16:48 | History and Physical Report ---
History of Present Illness Chief complaint: Mild left side feels weak History of present illness: 51 YO Male with CVA, DM, HTN, Metabolic Syndrome, CHF presents to ED for evaluation. Patient reports "I feel weak on my left side". Patient states that she was in his usual state of health today and experienced a sudden onset of left face,arm ,and leg weakness, as well as slurred speech at approximate 1200 hrs. EMS was notified and upon arrival the patient was found to be in distress with a new focal neurologic deficit. A code stroke was called and the patient was subsequently transported to [facility] for further care and evaluation of the aforementioned symptoms. The patient was seen and evaluated in the emergency department. All lab and imaging studies reviewed. Patient found to have clinical symptoms consistent with CVA. Patient admitted to medical floor and initiated on CVA protocol. Patient denies fever, chills, chest pain, palpitation, productive cough, skin rash, recent ill contacts, trauma, unil ateral leg swelling, calf pain, individual/family history of DVT/bleeding/blood clotting disorders, or known exposure to COVID-19. No prior admission for review. No medication listed at time of admission for reconciliation. Advanced care planning conducted in ED. Past History Past Medical History: diabetes, hypertension, stroke, other (See HPI) Past Surgical History: No surgical history, Other (Reviewed) Social history: , lives with family. denies: smoking, alcohol abuse, prescription drug abuse Family history: diabetes, hypertension Medications and Allergies Allergies Allergy/AdvReac Type Severity Reaction Status Date / Time No Known Allergies Allergy Verified 09/04/21 13:21 Home Medications Medication Instructions Recorded Confirmed Last Taken Type Acetaminophen [Acetaminophen TAB] 650 mg PO Q6H PRN #30 tablet 09/12/17 Unknown Rx Azithromycin [Zithromax Z-CHUCKY] 1 dose PO DAILY #1 pack 09/12/17 Unknown Rx Fluticasone [Flonase] 1 spray NS QDAY #1 bottle 09/12/17 Unknown Rx Insulin NPH/Regular [Novolin 70/30] 14 unit SQ BIDDIAB #100 ml 09/12/17 Unknown Rx Lispro Insulin [HumaLOG] 1 dose SUB-Q ACHS PRN #100 units 09/12/17 Unknown Rx Loratadine (Nf) [Claritin] 10 mg PO DAILY #30 tablet 09/12/17 Unknown Rx Metoprolol [Lopressor TAB] 25 mg PO BID #60 tablet 09/12/17 Unknown Rx amLODIPine 10 mg PO QDAY #30 tablet 09/12/17 Unknown Rx Review of Systems Constitutional: no weight loss, no weight gain, no fever, no chills Ears, nose, mouth and throat: no ear pain, no tinnitis, no decreased hearing, no nasal congestion, no nasal discharge, no sinus pain Cardiovascular: no chest pain, no palpitations, no edema, no syncope Respiratory: no cough, no hemoptysis, no shortness of breath Gastrointestinal: no abdominal pain, no nausea, no diarrhea, no constipation, no change in bowel habits Genitourinary Male: no hematuria, no flank pain, no discharge, no urinary frequency, no urinary hesitancy Rectal: no pain, no incontinence, no bleeding Musculoskeletal: no neck stiffness, no neck pain, no arm numbness/tingling, no shooting leg pain, no leg numbness/tingling Integumentary: no rash, no pruritis, no redness, no wounds, no jaundice Neurological: weakness, lack of coordination, change in speech, gait dysfunction, motor disturbance, no head injury Psychiatric: no anxiety, no change in sleep habits, no insomnia, no change in appetite, no suicidal ideation Endocrine: no cold intolerance, no heat intolerance, no excessive thirst, no polydipsia, no nocturia, no flushing Hematologic/Lymphatic: no easy bruising, no easy bleeding, no lymphedema Allergic/Immunologic: no urticaria, no allergic rhinitis, no wheezing, no anaphylaxis Exam - Constitutional Vitals: Temp Pulse Resp BP Pulse Ox 92 H 175/112 99 09/04/21 13:19 09/04/21 13:19 09/04/21 14:00 General appearance: Present: mild distress, obese - EENT Eyes: Present: PERRL ENT: hearing intact, clear oral mucosa - Neck Neck: Present: supple, normal ROM - Respiratory Respiratory effort: normal Respiratory: bilateral: CTA - Cardiovascular Heart Sounds: Present: S1 & S2. Absent: rub, click - Extremities Extremities: pulses symmetrical, No edema Peripheral Pulses: within normal limits - Abdominal General gastrointestinal: Present: soft, non-tender, non-distended, normal bowel sounds Male genitourinary: Present: normal - Integumentary Integumentary: Present: clear, warm, dry - Musculoskeletal Musculoskeletal: left sided weakness - Psychiatric Psychiatric: appropriate mood/affect, intact judgment & insight - Neurologic Neurologic: CNII-XII intact, moves all extremities HEART Score - HEART Score Troponin: Troponin T 0.029 ng/mL (0.00-0.029) 09/04/21 14:00 Results - Labs CBC & Chem 7: 09/04/21 14:00 09/04/21 14:00 Labs: Abnormal lab results 09/04/21 09/04/21 09/04/21 Range/Units 14:00 14:00 14:00 RDW 12.5 L (13.2-15.2) % Lymph # (Auto) 1.1 L (1.2-5.4) K/mm3 Seg Neutrophils % 77.2 H (40.0-70.0) % PT 15.0 H (12.2-14.9) Sec. Creatinine 1.5 H (0.8-1.3) mg/dL Glucose 172 H (75-100) mg/dL ALT < 5 L (7-56) units/L CK-MB (CK-2) Rel Index 4.3 H (0-4) Albumin 3.8 L (3.9-5) g/dL Assessment and Plan - Patient Problems (1) CVA (cerebral vascular accident) Current Visit: No Status: Acute Plan to address problem: CVA protocol: CT head, neuro check, seizure precautions, physical therapy consulted, speech therapy consulted, speech therapy consulted, echocardiogram, carotid Doppler, antiplatelet therapy, lipid panel, statin therapy. Teleneurology consulted in ED. (2) Left hemiparesis Current Visit: Yes Status: Acute Plan to address problem: Physical therapy consulted. (3) Hypertension Current Visit: Yes Status: Acute Qualifiers: Hypertension type: primary hypertension Qualified Code(s): I10 - Essential (primary) hypertension Plan to address problem: Monitor blood pressure every shift, continue medical management. (4) Diabetes Current Visit: Yes Status: Acute Plan to address problem: Consistent carbohydrate diet, Accu-Chek, insulin protocol, hypoglycemia pro tocol. (5) Metabolic syndrome Current Visit: Yes Status: Acute Plan to address problem: Balanced diet, weight reduction, risk factor reduction, supportive care. (6) Obesity hypoventilation syndrome Current Visit: Yes Status: Acute Plan to address problem: Balanced diet, increase physical activity discharge, outpatient pulmonary follow-up for sleep study. (7) DVT prophylaxis Current Visit: Yes Status: Acute Plan to address problem: SCD to bilateral lower extremities while in bed (8) CHF (congestive heart failure) Current Visit: Yes Status: Acute Qualifiers: Heart failure chronicity: chronic Plan to address problem: Strict I/O, monitor urine output every shift, daily weight, afterload reduction, blood pressure control, BNP, echocardiogram ordered and pending at time of admission. (9) Advance care planning Current Visit: Yes Status: Acute Plan to address problem: Disease education conducted, care plan discussed, diagnoses discussed, prognosis discussed, patient is full code. Patient acknowledges understanding and agreement with care plan, +30 minutes. (10) Preventative health care Current Visit: Yes Status: Acute Plan to address problem: Patient counseled regarding balanced diet, weight reduction, risk factor reduction, meal planning, medication compliance, outpatient follow-up with primary care physician for all age and risk factor related screening test. +30 minutes.
[2021-09-04] MEDS ORDERED: ACETAMINOPHEN 325 MG TAB PO PRN (16:50)
[2021-09-04] MEDS ORDERED: MAGNESIUM HYDROXIDE (MOM) ORAL LIQD UDC PO PRN (16:50)
[2021-09-04] MEDS ORDERED: PROMETHAZINE 25 MG RECT SUPP PR PRN (16:50)
[2021-09-04] MEDS ORDERED: oxyCODONE /ACETAMINOPHEN 5-325MG TAB PO PRN (16:50)
[2021-09-04] MEDS ORDERED: ONDANSETRON 4 MG/2 ML INJ IV PRN (16:50)
[2021-09-04] MEDS ORDERED: METOCLOPRAMIDE 10 MG TAB PO PRN (16:50)
[2021-09-04] MEDS ORDERED: HYDROmorphone 0.5 MG/0.5 ML INJ IV PRN (16:50)
--- NOTE | 2021-09-04 16:59 | Emergency Department Report ---
ED Neuro Deficit HPI - General Chief Complaint: Neuro Symptoms/Deficit Stated Complaint: LEFT SIDED WEAKNESS, VOMITING Time Seen by Provider: 09/04/21 14:26 Source: patient, EMS Mode of arrival: Stretcher Limitations: No Limitations - History of Present Illness Initial Comments: PT ARRIVING FROM HOME. C/O L SIDE WEAKNESS, VOMITTING SINCE APPROX 1200. TIA IN SEPTEMBER. -: Sudden, hour(s) (1) Location: left face, left arm, left leg Presenting Symptoms: Present: Weak/Paralyzed One Side History of same: No Place: home Severity: mild On Anticoagulants: No - Related Data Home Medications: Previous Rx's Medication Instructions Recorded Last Taken Type Acetaminophen [Acetaminophen TAB] 650 mg PO Q6H PRN #30 tablet 09/12/17 Unknown Rx Azithromycin [Zithromax Z-CHUCKY] 1 dose PO DAILY #1 pack 09/12/17 Unknown Rx Fluticasone [Flonase] 1 spray NS QDAY #1 bottle 09/12/17 Unknown Rx Insulin NPH/Regular [Novolin 70/30] 14 unit SQ BIDDIAB #100 ml 09/12/17 Unknown Rx Lispro Insulin [HumaLOG] 1 dose SUB-Q ACHS PRN #100 units 09/12/17 Unknown Rx Loratadine (Nf) [Claritin] 10 mg PO DAILY #30 tablet 09/12/17 Unknown Rx Metoprolol [Lopressor TAB] 25 mg PO BID #60 tablet 09/12/17 Unknown Rx amLODIPine 10 mg PO QDAY #30 tablet 09/12/17 Unknown Rx Allergies/Adverse Reactions: Allergies Allergy/AdvReac Type Severity Reaction Status Date / Time No Known Allergies Allergy Verified 09/04/21 13:21 ED Review of Systems ROS: Stated complaint: LEFT SIDED WEAKNESS, VOMITING Other details as noted in HPI Constitutional: denies: chills, fever Eyes: denies: eye pain, eye discharge, vision change ENT: denies: ear pain, throat pain Respiratory: denies: cough, shortness of breath, wheezing Cardiovascular: denies: chest pain, palpitations Endocrine: no symptoms reported Gastrointestinal: denies: abdominal pain, nausea, diarrhea Genitourinary: denies: urgency, dysuria Musculoskeletal: denies: back pain, joint swelling, arthralgia Skin: denies: rash, lesions Neurological: denies: headache, weakness, paresthesias Psychiatric: denies: anxiety, depression Hematological/Lymphatic: denies: easy bleeding, easy bruising ED Past Medical Hx - Past Medical History Hx Hypertension: Yes Hx CVA: Yes Hx Congestive Heart Failure: Yes Hx Diabetes: Yes - Social History Smoking Status: Never Smoker - Medications Home Medications: Home Medications Medication Instructions Recorded Confirmed Last Taken Type Acetaminophen [Acetaminophen TAB] 650 mg PO Q6H PRN #30 tablet 09/12/17 Unknown Rx Azithromycin [Zithromax Z-CHUCKY] 1 dose PO DAILY #1 pack 09/12/17 Unknown Rx Fluticasone [Flonase] 1 spray NS QDAY #1 bottle 09/12/17 Unknown Rx Insulin NPH/Regular [Novolin 70/30] 14 unit SQ BIDDIAB #100 ml 09/12/17 Unknown Rx Lispro Insulin [HumaLOG] 1 dose SUB-Q ACHS PRN #100 units 09/12/17 Unknown Rx Loratadine (Nf) [Claritin] 10 mg PO DAILY #30 tablet 09/12/17 Unknown Rx Metoprolol [Lopressor TAB] 25 mg PO BID #60 tablet 09/12/17 Unknown Rx amLODIPine 10 mg PO QDAY #30 tablet 09/12/17 Unknown Rx ED Neuro Physical Exam - General Limitations: No Limitations General appearance: alert, in no apparent distress Suspected Stroke: Yes - Head Head exam: Present: atraumatic, normocephalic - Eye Eye exam: Present: normal appearance - ENT ENT exam: Present: mucous membranes moist - Neck Neck exam: Present: normal inspection - Respiratory Respiratory exam: Present: normal lung sounds bilaterally. Absent: respiratory distress - Cardiovascular Cardiovascular Exam: Present: regular rate, normal rhythm. Absent: systolic murmur, diastolic murmur, rubs, gallop - GI/Abdominal GI/Abdominal exam: Present: soft, normal bowel sounds - Rectal Rectal exam: Present: deferred - Extremities Exam Extremities exam: Present: normal inspection - Back Exam Back exam: Present: normal inspection - Neurological Exam Neurological exam: Present: alert, oriented X3 - NIHSS Assessment Interval: Baseline 1a. Level of Consciousness: alert/keenly responsive 1b. LOC Questions: answers both correctly 1c. LOC Commands: performs tasks correctly 2. Best Gaze: normal 3. Visual: no visual loss 4. Facial Palsy: normal symmetrical movement 5b. Motor Arm Right: no drift 5a. Motor Arm Left: no drift 6a. Motor Leg Left: drift 6b. Motor Leg Right: no drift 7. Limb Ataxia: absent 8. Sensory: normal 9. Best Language: no aphasia 10. Dysarthria: normal 11. Extinction/Inattention: no abnormality Total Score: 1 Stroke Severity: Minor Stroke - Psychiatric Psychiatric exam: Present: normal affect, normal mood - Skin Skin exam: Present: warm, dry, intact, normal color. Absent: rash ED Course Vital Signs 09/04/21 09/04/21 13:19 14:00 Pulse Rate 92 H Blood Pressure 175/112 [Left] O2 Sat by Pulse 96 99 Oximetry - Lab Data Result diagrams: 09/04/21 14:00 09/04/21 14:00 Lab Results 09/04/21 09/04/21 09/04/21 Range/Units 14:00 14:00 14:00 WBC 7.0 (4.5-11.0) K/mm3 RBC 4.51 (3.65-5.03) M/mm3 Hgb 13.9 (11.8-15.2) gm/dl Hct 41.1 (35.5-45.6) % MCV 91 (84-94) fl MCH 31 (28-32) pg MCHC 34 (32-34) % RDW 12.5 L (13.2-15.2) % Plt Count 209 (140-440) K/mm3 Lymph % (Auto) 15.8 (13.4-35.0) % Sac % (Auto) 6.3 (0.0-7.3) % Eos % (Auto) 0.4 (0.0-4.3) % Baso % (Auto) 0.3 (0.0-1.8) % Lymph # (Auto) 1.1 L (1.2-5.4) K/mm3 Sac # (Auto) 0.4 (0.0-0.8) K/mm3 Eos # (Auto) 0.0 (0.0-0.4) K/mm3 Baso # (Auto) 0.0 (0.0-0.1) K/mm3 Seg Neutrophils % 77.2 H (40.0-70.0) % Seg Neutrophils # 5.4 (1.8-7.7) K/mm3 PT 15.0 H (12.2-14.9) Sec. INR 1.06 (0.87-1.13) APTT 26.4 (24.2-36.6) Sec. Thrombin Time 16.8 (15.1-19.6) Sec. Sodium 138 (137-145) mmol/L Potassium 4.3 (3.6-5.0) mmol/L Chloride 100.6 (98-107) mmol/L Carbon Dioxide 28 (22-30) mmol/L Anion Gap 14 mmol/L BUN 13 (9-20) mg/dL Creatinine 1.5 H (0.8-1.3) mg/dL Estimated GFR 60 ml/min BUN/Creatinine Ratio 9 % Glucose 172 H (75-100) mg/dL Calcium 9.3 (8.4-10.2) mg/dL Total Bilirubin 0.60 (0.1-1.2) mg/dL AST 14 (5-40) units/L ALT < 5 L (7-56) units/L Alkaline Phosphatase 40 (35-129) units/L Total Creatine Kinase 66 (55-170) units/L CK-MB (CK-2) 2.9 (0.0-4.0) ng/mL CK-MB (CK-2) Rel Index 4.3 H (0-4) Troponin T 0.029 (0.00-0.029) ng/mL Total Protein 7.1 (6.3-8.2) g/dL Albumin 3.8 L (3.9-5) g/dL Albumin/Globulin Ratio 1.2 % - EKG Data -: EKG Interpreted by Nv EKG shows normal: sinus rhythm When compared to previous EKG there are: no significant change Interpretation: nonspecific ST-T wave kirti - Radiology Data Radiology results: image reviewed - Medical Decision Making stroke alert on arrival , not tpa candidate , [facility] Critical care attestation.: If time is entered above; I have spent that time in minutes in the direct care of this critically ill patient, excluding procedure time. ED Disposition Clinical Impression: CVA (cerebral vascular accident), Left-sided weakness Disposition: ADMITTED INPATIENT Is pt being admited?: Yes Does the pt Need Aspirin: Yes Condition: Fair
[2021-09-04] MEDS: METOPROLOL TARTRATE 25 MG TAB PO SCH (22:00)
[2021-09-04 23:10] LABS: Amphetamine Screen,Urine PRESUMPTIVE NEGATIVE; Benzodiazepines Screen,Urine PRESUMPTIVE NEGATIVE; Cannabinoid Screen,Urine PRESUMPTIVE NEGATIVE; Cocaine Screen,Urine PRESUMPTIVE NEGATIVE; Methadone Screen,Urine PRESUMPTIVE NEGATIVE; Opiate Screen,Urine PRESUMPTIVE NEGATIVE
[2021-09-04 23:24] LABS: Bilirubin,Urine Negative (Negative); Color,Urine Yellow (Yellow)
[2021-09-04 23:25] LABS: Blood,Urine Negative (Negative)
[2021-09-05] MEDS ORDERED: SODIUM CHLORIDE 0.9% 100 ML IVPB IV SCH (02:00)
[2021-09-05] MEDS: SODIUM CHLORIDE 0.9% 1000 ML 1,000 ML IV SCH (03:03)
--- NOTE | 2021-09-05 09:06 | Progress Note ---
Assessment and Plan Assessment and plan: --CVA (cerebral vascular accident) Not a candidate for tPA CVA protocol: CT head, neuro check, seizure precautions, Physical therapy occupational therapy and speech therapy consulted, Follow extensive neuro work-up echocardiogram, carotid Doppler, Continue antiplatelet and statin therapy Telemetry neurologist evaluated the patient Neuro work-up : CT head no acute abnormality noted CTA head; significant narrowing of the cavernous portion of the internal carotid artery on the right no large vessel occlusion appreciated CTA neck no hemodynamically significant stenosis MRI brain 0.9 cm acute infarct oriented along the posterior limb of the right internal capsule There is otherwise moderate chronic microvascular angiopathy as detailed --Left hemiparesis Physical therapy consulted. -- Hypertension Monitor blood pressure every shift, continue medical management. --Diabetes Consistent carbohydrate diet, Accu-Chek, insulin protocol, hypoglycemia protocol. -- Metabolic syndrome Balanced diet, weight reduction, risk factor reduction, supportive care. --Obesity hypoventilation syndrome Balanced diet, increase physical activity discharge, outpatient pulmonary follow-up for sleep study. -- DVT prophylaxis SCD to bilateral lower extremities while in bed --CHF (congestive heart failure) Strict I/O, monitor urine output every shift, daily weight, afterload reduction, blood pressure control, BNP, echocardiogram ordered and pending at time of admission. --Advance care planning Current Visit: Yes Status: Acute Plan to address problem: Disease education conducted, care plan discussed, diagnoses discussed, prognosis discussed, patient is full code. Patient acknowledges understanding and agreement with care plan, +30 minutes. -- Preventative health care Current Visit: Yes Status: Acute Plan to address problem: Patient counseled regarding balanced diet, weight reduction, risk factor reduction, meal planning, medication compliance, outpatient follow-up with primary care physician for all age and risk factor related screening test. +30 minutes. Brief history and daily Hospital course; 51-year-old patient was admitted with stroke protocol, not a candidate for tPA, neuro work-up is in progress Acute CVA on the right internal capsule with left hemiparesis, follow neurology, follow PT OT ST Discharge planning when stable 09/05/2021; neuro work-up reviewed, acute right-sided CVA with left-sided hemiparesis Follow-up PT OT rehab, follow clinically, DC planning per case management History Interval history: I have seen and examined the patient at the bedside Patient's chart and medications reviewed Patient admitted with acute CVA with left-sided hemiparesis Neuro work-up is in progress Vital signs noted Hospitalist Physical - Constitutional Vitals: Temp Pulse Resp BP Pulse Ox 98.8 F 89 17 187/103 98 09/05/21 06:02 09/05/21 06:02 09/05/21 06:02 09/05/21 06:02 09/05/21 08:11 General appearance: Present: mild distress, obese - EENT Eyes: Present: PERRL, EOM intact - Neck Neck: Present: supple, normal ROM - Respiratory Respiratory effort: normal Respiratory: bilateral: diminished, negative: rales, rhonchi, wheezing - Cardiovascular Rhythm: regular Heart Sounds: Present: S1 & S2 - Extremities Extremities: no ischemia, No edema - Abdominal General gastrointestinal: soft, non-tender, non-distended, normal bowel sounds - Integumentary Integumentary: Present: clear, warm - Psychiatric Psychiatric: appropriate mood/affect, cooperative - Neurologic Neurologic: moves all extremities (Acute CVA with left hemiparesis) HEART Score - HEART Score Troponin: Troponin T 0.029 ng/mL (0.00-0.029) 09/04/21 14:00 Results - Labs CBC & Chem 7: 09/04/21 14:00 09/04/21 14:00 Labs: Laboratory Last Values WBC 7.0 K/mm3 (4.5-11.0) 09/04/21 14:00 RBC 4.51 M/mm3 (3.65-5.03) 09/04/21 14:00 Hgb 13.9 gm/dl (11.8-15.2) 09/04/21 14:00 Hct 41.1 % (35.5-45.6) 09/04/21 14:00 MCV 91 fl (84-94) 09/04/21 14:00 MCH 31 pg (28-32) 09/04/21 14:00 MCHC 34 % (32-34) 09/04/21 14:00 RDW 12.5 % (13.2-15.2) L 09/04/21 14:00 Plt Count 209 K/mm3 (140-440) 09/04/21 14:00 Lymph % (Auto) 15.8 % (13.4-35.0) 09/04/21 14:00 [place] % (Auto) 6.3 % (0.0-7.3) 09/04/21 14:00 Eos % (Auto) 0.4 % (0.0-4.3) 09/04/21 14:00 Baso % (Auto) 0.3 % (0.0-1.8) 09/04/21 14:00 Lymph # (Auto) 1.1 K/mm3 (1.2-5.4) L 09/04/21 14:00 [place] # (Auto) 0.4 K/mm3 (0.0-0.8) 09/04/21 14:00 Eos # (Auto) 0.0 K/mm3 (0.0-0.4) 09/04/21 14:00 Baso # (Auto) 0.0 K/mm3 (0.0-0.1) 09/04/21 14:00 Seg Neutrophils % 77.2 % (40.0-70.0) H 09/04/21 14:00 Seg Neutrophils # 5.4 K/mm3 (1.8-7.7) 09/04/21 14:00 PT 15.0 Sec. (12.2-14.9) H 09/04/21 14:00 INR 1.06 (0.87-1.13) 09/04/21 14:00 APTT 26.4 Sec. (24.2-36.6) 09/04/21 14:00 Thrombin Time 16.8 Sec. (15.1-19.6) 09/04/21 14:00 Sodium 138 mmol/L (137-145) 09/04/21 14:00 Potassium 4.3 mmol/L (3.6-5.0) 09/04/21 14:00 Chloride 100.6 mmol/L (98-107) 09/04/21 14:00 Carbon Dioxide 28 mmol/L (22-30) 09/04/21 14:00 Anion Gap 14 mmol/L 09/04/21 14:00 BUN 13 mg/dL (9-20) 09/04/21 14:00 Creatinine 1.5 mg/dL (0.8-1.3) H 09/04/21 14:00 Estimated GFR 60 ml/min 09/04/21 14:00 BUN/Creatinine Ratio 9 % 09/04/21 14:00 Glucose 172 mg/dL (75-100) H 09/04/21 14:00 POC Glucose 126 mg/dL (70-105) H 09/05/21 07:54 Calcium 9.3 mg/dL (8.4-10.2) 09/04/21 14:00 Total Bilirubin 0.60 mg/dL (0.1-1.2) 09/04/21 14:00 AST 14 units/L (5-40) 09/04/21 14:00 ALT < 5 units/L (7-56) L 09/04/21 14:00 Alkaline Phosphatase 40 units/L (35-129) 09/04/21 14:00 Total Creatine Kinase 66 units/L (55-170) 09/04/21 14:00 CK-MB (CK-2) 2.9 ng/mL (0.0-4.0) 09/04/21 14:00 CK-MB (CK-2) Rel Index 4.3 (0-4) H 09/04/21 14:00 Troponin T 0.029 ng/mL (0.00-0.029) 09/04/21 14:00 NT-Pro-B Natriuret Pep 1545 pg/mL (0-900) H 09/04/21 14:00 Total Protein 7.1 g/dL (6.3-8.2) 09/04/21 14:00 Albumin 3.8 g/dL (3.9-5) L 09/04/21 14:00 Albumin/Globulin Ratio 1.2 % 09/04/21 14:00 Urine Color Yellow (Yellow) 09/04/21 22:19 Urine Turbidity Slightly cloudy (Clear) 09/04/21 22:19 Urine pH 5.0 (5.0-7.0) 09/04/21 22:19 Ur Specific [place] 1.015 (1.003-1.030) 09/04/21 22:19 Urine Protein 30 mg/dl mg/dL (Negative) 09/04/21 22:19 Urine Glucose (UA) Negative mg/dL (Negative) 09/04/21 22:19 Urine Ketones Negative mg/dL (Negative) 09/04/21 22:19 Urine Blood Negative (Negative) 09/04/21 22:19 Urine Nitrite Negative (Negative) 09/04/21 22:19 Urine Bilirubin Negative (Negative) 09/04/21 22:19 Urine Urobilinogen 0.0 mg/dL (<2.0) 09/04/21 22:19 Ur Leukocyte Esterase Negative (Negative) 09/04/21 22:19 Urine WBC (Auto) 4.0 /HPF (0.0-6.0) 09/04/21 22:19 Urine RBC (Auto) 1.0 /HPF (0.0-6.0) 09/04/21 22:19 U Epithel Cells (Auto) 2.0 /HPF (0-13.0) 09/04/21 22:19 Urine Opiates Screen Presumptive negative 09/04/21 22:19 Urine Methadone Screen Presumptive negative 09/04/21 22:19 Ur Barbiturates Screen Presumptive negative 09/04/21 22:19 Ur Phencyclidine Scrn Presumptive negative 09/04/21 22:19 Ur Amphetamines Screen Presumptive negative 09/04/21 22:19 U Benzodiazepines Scrn Presumptive negative 09/04/21 22:19 Urine Cocaine Screen Presumptive negative 09/04/21 22:19 U Marijuana (THC) Screen Presumptive negative 09/04/21 22:19 Drugs of Abuse Note Disclamer 09/04/21 22:19 Alcazar/IV: Voiding Method Urinal Active Medications - Current Medications Current Medications: Generic Name Dose Route Start Last Admin Trade Name Freq PRN Reason Stop Dose Admin Acetaminophen 650 mg 09/04/21 16:50 Acetaminophen 325 Mg Tab PO Q4H PRN Pain, Mild (1-3) Amlodipine Besylate 10 mg 09/05/21 10:00 Amlodipine 10 Mg Tab PO QDAY DELANO Atorvastatin Calcium 40 mg 09/04/21 22:00 09/04/21 22:00 Atorvastatin 40 Mg Tab PO 40 mg QHS DELANO Administration Bisacodyl 10 mg 09/04/21 16:50 Bisacodyl 10 Mg Rect Supp ME QDAY PRN Constipation Cetirizine HCl 10 mg 09/05/21 10:00 Cetirizine 10 Mg Tab PO DAILY DELANO Hydromorphone HCl 0.5 mg 09/04/21 16:50 Hydromorphone 0.5 Mg/0.5 Ml Inj IV Q23H PRN Pain , Severe (7-10) Sodium Chloride 1,000 mls @ 100 mls/hr 09/05/21 02:15 09/05/21 03:03 Nacl 0.9% 1000 Ml IV 100 mls/hr DIRECT DELANO Administration Labetalol HCl 10 mg 09/05/21 01:18 09/05/21 02:50 Labetalol 20 Mg/4 Ml Inj IV 10 mg Q6HR PRN Administration Blood Pressure Magnesium Hydroxide 30 ml 09/04/21 16:50 Magnesium Hydroxide (Mom) Oral Liqd Udc PO Q4H PRN Constipation Metoclopramide HCl 10 mg 09/04/21 16:50 Metoclopramide 10 Mg Tab PO Q6H PRN Nausea And Vomiting Metoprolol Tartrate 25 mg 09/04/21 22:00 09/04/21 22:00 Metoprolol Tartrate 25 Mg Tab PO 25 mg BID DELANO Administration Ondansetron HCl 4 mg 09/04/21 16:50 Ondansetron 4 Mg/2 Ml Inj IV Q8H PRN Nausea And Vomiting Oxycodone/Acetaminophen 1 tab 09/04/21 16:50 Oxycodone /Acetaminophen 5-325mg Tab PO Q16H PRN Pain, Moderate (4-6) Promethazine HCl 25 mg 09/04/21 16:50 Promethazine 25 Mg Rect Supp ME Q6H PRN Nausea And Vomiting Sodium Chloride 10 ml 09/04/21 16:50 Sodium Chloride 0.9% 10 Ml Flush Syringe IV PRN PRN LINE FLUSH
--- NOTE | 2021-09-05 09:33 | Electrocardiograph Report ---
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
[2021-09-05] MEDS ORDERED: NON-FORMULARY EACH (Loratadine (Nf) 10 MG Tablet) PO SCH (10:00)
[2021-09-05] MEDS: METOPROLOL TARTRATE 25 MG TAB PO SCH ×2 (10:59→21:45)
[2021-09-05] MEDS: CETIRIZINE 10 MG TAB PO SCH (10:59)
[2021-09-05] MEDS: amLODIPine 10 MG TAB PO SCH (10:59)
--- NOTE | 2021-09-05 14:42 | Magnetic Resonance Report ---
MR brain wo con INDICATION / CLINICAL INFORMATION: 51 years Male; Acute CVA--LEFT SIDED WEAKNESS. TECHNIQUE: Multiplanar, multisequence MR images of the brain were obtained. COMPARISON: The study is compared to the previous CT of 09/04/2021. FINDINGS: BRAIN / INTRACRANIAL CONTENTS: There is acute to infarct oriented along the posterior limb of the rig ht internal capsule measuring 0.9 cm in greatest AP dimension at. On the FLAIR sequences I, there is moderate cerebral and pontine white matter disease most consistent with microvascular angiopathy. The re are old small lacunar infarcts involving the deep cerebral white matter along with the posterior r ight thalamus. The diffusion imaging reveals no further evidence of recent infarction. The ventricular system is appropriate in size and configuration. No extra-axial fluid collections or significant mass effect is identified. CRANIOCERVICAL JUNCTION: No significant abnormality. VASCULAR FLOW-VOIDS: No significant abnormality. ORBITS: No significant abnormality of visualized orbits. SINUSES / MASTOIDS: There is mild scattered mucosal thickening within the ethmoid air cells. ADDITIONAL FINDINGS: None. IMPRESSION: 1. There is a 0.9 cm acute infarct oriented along the posterior limb of the right internal capsule. 2. There is otherwise moderate chronic microvascular angiopathy as detailed above. Signer Name: Dustin Grimes MD Signed: 09/05/2021 2:37 PM Workstation Name: [id number]
--- NOTE | 2021-09-05 15:34 | Consultation ---
History of Present Illness Consult date: 09/05/21 Reason for Consult: CVA History of present illness: The patient comes in for evaluation of Left Side Hemiplegia - no improvement in the last 24 hours . Past History Past Medical History: diabetes, hypertension, stroke, other (See HPI) Past Surgical History: No surgical history, Other (Reviewed) Social history: , lives with family. denies: smoking, alcohol abuse, prescription drug abuse Family history: diabetes, hypertension Medications and Allergies Allergies Allergy/AdvReac Type Severity Reaction Status Date / Time No Known Allergies Allergy Verified 09/04/21 13:21 Home Medications Medication Instructions Recorded Confirmed Last Taken Type Acetaminophen [Acetaminophen TAB] 650 mg PO Q6H PRN #30 tablet 09/12/17 Unknown Rx Azithromycin [Zithromax Z-CHUCKY] 1 dose PO DAILY #1 pack 09/12/17 Unknown Rx Fluticasone [Flonase] 1 spray NS QDAY #1 bottle 09/12/17 Unknown Rx Insulin NPH/Regular [Novolin 70/30] 14 unit SQ BIDDIAB #100 ml 09/12/17 Unknown Rx Lispro Insulin [HumaLOG] 1 dose SUB-Q ACHS PRN #100 units 09/12/17 Unknown Rx Loratadine (Nf) [Claritin] 10 mg PO DAILY #30 tablet 09/12/17 Unknown Rx Metoprolol [Lopressor TAB] 25 mg PO BID #60 tablet 09/12/17 09/05/21 09/03/21 21:00 Rx amLODIPine 10 mg PO QDAY #30 tablet 09/12/17 09/05/21 09/03/21 09:00 Rx Active Meds: Active Medications Acetaminophen (Acetaminophen 325 Mg Tab) 650 mg PO Q4H PRN PRN Reason: Pain, Mild (1-3) Amlodipine Besylate (Amlodipine 10 Mg Tab) 10 mg PO QDAY [facility] Last Admin: 09/05/21 10:59 Dose: 10 mg Atorvastatin Calcium (Atorvastatin 40 Mg Tab) 40 mg PO QHS [facility] Last Admin: 09/04/21 22:00 Dose: 40 mg Bisacodyl (Bisacodyl 10 Mg Rect Supp) 10 mg AL QDAY PRN PRN Reason: Constipation Cetirizine HCl (Cetirizine 10 Mg Tab) 10 mg PO DAILY [facility] Last Admin: 09/05/21 10:59 Dose: 10 mg Hydromorphone HCl (Hydromorphone 0.5 Mg/0.5 Ml Inj) 0.5 mg IV Q23H PRN PRN Reason: Pain , Severe (7-10) Sodium Chloride (Nacl 0.9% 1000 Ml) 1,000 mls @ 100 mls/hr IV DIRECT [facility] Last Admin: 09/05/21 03:03 Dose: 100 mls/hr Labetalol HCl (Labetalol 20 Mg/4 Ml Inj) 10 mg IV Q6HR PRN PRN Reason: Blood Pressure Last Admin: 09/05/21 09:08 Dose: 10 mg Magnesium Hydroxide (Magnesium Hydroxide (Mom) Oral Liqd Udc) 30 ml PO Q4H PRN PRN Reason: Constipation Metoclopramide HCl (Metoclopramide 10 Mg Tab) 10 mg PO Q6H PRN PRN Reason: Nausea And Vomiting Metoprolol Tartrate (Metoprolol Tartrate 25 Mg Tab) 25 mg PO BID [facility] Last Admin: 09/05/21 10:59 Dose: 25 mg Ondansetron HCl (Ondansetron 4 Mg/2 Ml Inj) 4 mg IV Q8H PRN PRN Reason: Nausea And Vomiting Oxycodone/Acetaminophen (Oxycodone /Acetaminophen 5-325mg Tab) 1 tab PO Q16H PRN PRN Reason: Pain, Moderate (4-6) Promethazine HCl (Promethazine 25 Mg Rect Supp) 25 mg AL Q6H PRN PRN Reason: Nausea And Vomiting Sodium Chloride (Sodium Chloride 0.9% 10 Ml Flush Syringe) 10 ml IV PRN PRN PRN Reason: LINE FLUSH Physical Examination - Vital Signs Vital Signs: Vital Signs Pulse BP Pulse Ox 92 H 175/112 96 09/04/21 13:19 09/04/21 13:19 09/04/21 13:19 - Physical Exam Narrative exam: 1. The patient is alert ,Cr nerve left facial asymetry, left hemiplegia - 1 . Results - Laboratory Findings CBC and BMP: 09/04/21 14:00 09/04/21 14:00 Abnormal Lab Findings: Abnormal Labs 09/04/21 09/04/21 09/04/21 14:00 14:00 14:00 RDW 12.5 L Lymph # (Auto) 1.1 L Seg Neutrophils % 77.2 H PT 15.0 H Creatinine 1.5 H Glucose 172 H POC Glucose ALT < 5 L CK-MB (CK-2) Rel Index 4.3 H NT-Pro-B Natriuret Pep Albumin 3.8 L 09/04/21 09/05/21 09/05/21 14:00 07:54 11:02 RDW Lymph # (Auto) Seg Neutrophils % PT Creatinine Glucose POC Glucose 126 H 132 H ALT CK-MB (CK-2) Rel Index NT-Pro-B Natriuret Pep 1545 H Albumin Assessment and Plan 1. CVA - Left Hemiplegia- secondary ot ICA stenosis on the Right Cavernous portion of Carotid . 2. Continue All Home Medications - ASA 81 mg + Plavix 75 mg . 3. Strongly recommend inpatient rehabilitation . 4. Needs a input from Vascular or Interventaion neurology for ? Cavernous Stenosis . 5. Call Back with Questions . Dr. Oden
[2021-09-06] MEDS: SODIUM CHLORIDE 0.9% 1000 ML 1,000 ML IV SCH ×2 (00:18→10:03)
[2021-09-06] MEDS: CETIRIZINE 10 MG TAB PO SCH (09:18)
[2021-09-06] MEDS: METOPROLOL TARTRATE 25 MG TAB PO SCH ×2 (09:18→21:23)
[2021-09-06] MEDS: amLODIPine 10 MG TAB PO SCH (09:18)
[2021-09-06] MEDS ORDERED: METOPROLOL TARTRATE 25 MG TAB PO NR (09:48)
[2021-09-06] MEDS: CLOPIDOGREL 75 MG TAB PO SCH (10:00)
[2021-09-06] MEDS: ASPIRIN EC 81 MG TAB PO SCH (10:00)
[2021-09-06] MEDS ORDERED: METOPROLOL TARTRATE 25 MG TAB PO SCH (10:00)
[2021-09-06] MEDS: LOSARTAN 25 MG TAB PO SCH (10:00)
--- NOTE | 2021-09-06 15:11 | Discharge Summary ---
Providers - Providers Date of Admission: 09/04/21 16:50 Date of discharge: 09/07/21 Attending physician: BURAK CUELLAR 09/04/21 16:50 Occupational Therapy Evaluate and Treat [CONS] Routine Comment: Reason For Exam: Neuro deficits Physical Therapy Evaluation and Treat [CONS] Routine Comment: Reason For Exam: Neuro deficits 09/05/21 06:53 Speech Therapy Evaluation and Treat [CONS] Stat Reason For Exam: cva swalloe evaluation 09/05/21 09:35 Consult to Physician [CONS] Routine Comment: Consulting Provider: PRANEETH SINGH Physician Instructions: Reason For Exam: Acute CVA 09/06/21 09:37 Consult to Physician [CONS] Routine Comment: Consulting Provider: DARIAN KAM Physician Instructions: Reason For Exam: Cavernous Stenosis Primary care physician: FAINA RAMSEY Hospitalization Condition: Fair Hospital course: Brief history and daily Hospital course; 51-year-old patient was admitted with stroke protocol, not a candidate for tPA, neuro work-up is in progress Acute CVA on the right internal capsule with left hemiparesis, followed by neurology, ordered PT OT ST. 09/05/2021; neuro work-up reviewed, acute right-sided CVA with left-sided hemiparesis Follow-up PT OT, follow clinically, DC planning per case management 09/06: Discussed with vascular surgeon and recommended to get interventional neurology to be involved for cavernous portion of the right internal carotid stenosis. We will reach out to [facility] and will continue to follow. 09/07: Discussed by phone with [place] interventional neurologist about patient's CTA head neck findings, and patient was not found to be a candidate for any further intervention. According to neurologist patient acute CVA not related to carotid stenosis and could be managed as outpatient with antiplatelets and statin therapy. Continue to adjust BP medications. Patient will be discharged home with home health with a hemiwalker if systolic blood pressure less than 160. 09/08: BP is stable. PT recommended acute rehab but patient is unfunded and unable to setup acute rehab. Patient will be discharged home with roller walker and family supervision. A/p --CVA (cerebral vascular accident) Not a candidate for tPA CVA protocol: CT head, neuro check, seizure precautions, Physical therapy occupational therapy and speech therapy consulted, Follow extensive neuro work-up echocardiogram, carotid Doppler, Continue antiplatelet and statin therapy Telemetry neurologist evaluated the patient Neuro work-up : CT head no acute abnormality noted CTA head; significant narrowing of the cavernous portion of the internal carotid artery on the right no large vessel occlusion appreciated CTA neck no hemodynamically significant stenosis MRI brain 0.9 cm acute infarct oriented along the posterior limb of the right internal capsule There is otherwise moderate chronic microvascular angiopathy as detailed --Left hemiparesis Physical therapy consulted. -- Hypertension Monitor blood pressure every shift, continue medical management. --Diabetes Consistent carbohydrate diet, Accu-Chek, insulin protocol, hypoglycemia protocol. -- Metabolic syndrome Balanced diet, weight reduction, risk factor reduction, supportive care. --Obesity hypoventilation syndrome Balanced diet, increase physical activity discharge, outpatient pulmonary follow-up for sleep study. --CHF (congestive heart failure), likely diastolic Strict I/O, monitor urine output every shift, daily weight, afterload reduction, blood pressure control, echocardiogram ordered and showed preserved EF -- DVT prophylaxis SCD to bilateral lower extremities while in bed --Advance care planning Current Visit: Yes Status: Acute Plan to address problem: Disease education conducted, care plan discussed, diagnoses discussed, prognosis discussed, patient is full code. Patient acknowledges understanding and agreement with care plan, -- Preventative health care Current Visit: Yes Status: Acute Plan to address problem: Patient counseled regarding balanced diet, weight reduction, risk factor reduction, meal planning, medication compliance, outpatient follow-up with primary care physician for all age and risk factor related screening test. Disposition: HOME HEALTH CARE SERVICE Final Discharge Diagnosis (Prints w/discharge instructions): -- Acute CVA with left hemiparesis. --Hypertension. -- Diabetes mellitus type 2. -- obesity Time spent for discharge: 34 minutes Core Measure Documentation - Palliative Care Palliative Care/ Comfort Measures: Not Applicable - Core Measures Any of the following diagnoses?: stroke - Stroke Discharge Requirements Statin for LDL = or >70 mg/dl on DC: Yes Anticoag for atrial fib/atrial flutter: Not Applicable Antithrombotic for ischemic stroke: Yes Exam - Physical Exam Narrative exam: GENERAL: well-developed and well-nourished -[place] male lying on bed appeared to be in no discomfort. HEENT: Normocephalic. Atraumatic. No conjunctival congestion or icterus. Patient has moist mucous membranes. NECK: Supple. Trachea midline. CHEST/LUNGS: Clear to auscultated bilaterally, breathing nonlabored. No wheezes crackles or rhonchi. HEART/CARDIOVASCULAR: Regular in rate and rhythm. S1 and S2 positive. ABDOMEN: Abdomen is soft, nontender. Patient has normal bowel sounds. SKIN: There is no rash. Warm and dry. NEURO: Left-sided weakness. Follows command. MUSCULOSKELETAL: No joint effusion or tenderness. EXTRIMITY: No edema, no cyanosis or clubbing. PSYCH: Cooperative. - Constitutional Vitals: Temp Pulse Resp BP Pulse Ox 98.6 F 84 18 162/91 96 09/06/21 08:31 09/06/21 13:00 09/06/21 13:00 09/06/21 08:31 09/06/21 13:00 Plan Activity: fall precautions Weight Bearing Status: Weight Bear as Tolerated Diet: low cholesterol, low salt Special Instructions: record daily BP diary Follow up with: FAINA RAMSEY MD [Primary Care Provider] - 7 Days Prescriptions: AtorvaSTATin [Lipitor] 40 mg PO QHS #90 tablet amLODIPine 10 mg PO QDAY #30 tablet hydrALAZINE [Apresoline TAB] 100 mg PO Q8HR #90 tab Losartan [Cozaar] 50 mg PO QDAY #90 tablet Aspirin EC [Halfprin EC] 81 mg PO QDAY #90 tablet Metoprolol [Lopressor TAB] 100 mg PO BID #120 tablet Clopidogrel [Plavix] 75 mg PO QDAY #90 tablet
--- NOTE | 2021-09-06 15:18 | Progress Note ---
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 We will reach out to [facility] and will continue to follow. Assessment and plan: --CVA (cerebral vascular accident) Not a candidate for tPA CVA protocol: CT head, neuro check, seizure precautions, Physical therapy occupational therapy and speech therapy consulted, Follow extensive neuro work-up echocardiogram, carotid Doppler, Continue antiplatelet and statin therapy Telemetry neurologist evaluated the patient Neuro work-up : CT head no acute abnormality noted CTA head; significant narrowing of the cavernous portion of the internal carotid artery on the right no large vessel occlusion appreciated CTA neck no hemodynamically significant stenosis MRI brain 0.9 cm acute infarct oriented along the posterior limb of the right internal capsule There is otherwise moderate chronic microvascular angiopathy as detailed --Right internal carotid stenosis, discussed with vascular and recommended to get improved from interventional neurology. We do not have interventional neurology in this hospital, will reach out to [place], will continue to follow --Left hemiparesis Physical therapy consulted. -- Hypertension Monitor blood pressure every shift, continue medical management. --Diabetes Consistent carbohydrate diet, Accu-Chek, insulin protocol, hypoglycemia protocol. -- Metabolic syndrome Balanced diet, weight reduction, risk factor reduction, supportive care. --Obesity Balanced diet, increase physical activity discharge, -- DVT prophylaxis SCD to bilateral lower extremities while in bed --CHF (congestive heart failure)-May be diastolic, wait for final 2D echo result Continue strict I/O, monitor urine output every shift, daily weight, afterload reduction, blood pressure control, BNP, echocardiogram ordered and pending at time of admission. --Advance care planning Current Visit: Yes Status: Acute Plan to address problem: Disease education conducted, care plan discussed, diagnoses discussed, prognosis discussed, patient is full code. Patient acknowledges understanding and agreement with care plan, +30 minutes. -- Preventative health care Current Visit: Yes Status: Acute Plan to address problem: Patient counseled regarding balanced diet, weight reduction, risk factor reduction, meal planning, medication compliance, outpatient follow-up with primary care physician for all age and risk factor related screening test. +30 minutes. Subjective Date of service: 09/06/21 Interval history: Patient seen and examined. Medical records and medication list reviewed. No acute event overnight noted by the RN. Patient denies any chest pain or difficulty breathing. Patient is tolerating diet. Unable to stand up or ambulate with a cane without the assistance Discussed plan of care at bedside with patient and states that there is no one at home to take care of him. Objective - Exam Narrative Exam: GENERAL: well-developed and well-nourished -[place] male lying on bed appeared to be in no discomfort. HEENT: Normocephalic. Atraumatic. No conjunctival congestion or icterus. Patient has moist mucous membranes. NECK: Supple. Trachea midline. CHEST/LUNGS: Clear to auscultated bilaterally, breathing nonlabored. No wheezes crackles or rhonchi. HEART/CARDIOVASCULAR: Regular in rate and rhythm. S1 and S2 positive. ABDOMEN: Abdomen is soft, nontender. Patient has normal bowel sounds. SKIN: There is no rash. Warm and dry. NEURO: Left-sided weakness. Follows command. MUSCULOSKELETAL: No joint effusion or tenderness. EXTRIMITY: No edema, no cyanosis or clubbing. PSYCH: Cooperative. - Constitutional Vitals: Vital Signs - 12hr 09/06/21 09/06/21 09/06/21 05:40 07:00 08:31 Temperature 98.0 F 98.6 F Pulse Rate 84 85 Pulse Rate [ Left Radial] Respiratory 20 16 Rate Blood Pressure 182/101 Blood Pressure 163/95 [Left] O2 Sat by Pulse 93 Oximetry 09/06/21 09/06/21 09:00 13:00 Temperature Pulse Rate Pulse Rate [ 84 Left Radial] Respiratory 18 Rate Blood Pressure Blood Pressure [Left] O2 Sat by Pulse 98 96 Oximetry - Labs CBC & Chem 7: 09/04/21 14:00 09/04/21 14:00 Labs: Abnormal lab results 09/05/21 09/05/21 09/06/21 Range/Units 15:56 20:55 09:17 POC Glucose 179 H 173 H 157 H (70-105) mg/dL Hemoglobin A1c (4-6) % 09/06/21 09/06/21 Range/Units 12:00 13:02 POC Glucose 168 H (70-105) mg/dL Hemoglobin A1c 6.3 H (4-6) % HEART Score - HEART Score Troponin: Troponin T 0.029 ng/mL (0.00-0.029) 09/04/21 14:00
--- NOTE | 2021-09-06 16:18 | Consultation ---
History of Present Illness - Reason for Consult Consult date: 09/06/21 Left hemiparetic Requesting physician: BURAK CUELLAR - History of Present Illness 51 year old Male with CVA, DM, HTN, Metabolic Syndrome, CHF presents to ED for evaluation. Patient reports "I feel weak on my left side". Patient states that she was in his usual state of health today and experienced a sudden onset of left face,arm ,and leg weakness, as well as slurred speech at approximate 1200 hrs. EMS was notified and upon arrival the patient was found to be in distress with a new focal neurologic deficit. A code stroke was called and the patient was subsequently transported to [facility] for further care and evaluation of the aforementioned symptoms. The patient was seen and evaluated in the emergency department. All lab and imaging studies reviewed. Patient found to have clinical symptoms consistent with CVA. Patient admitted to medical floor and initiated on CVA protocol. Patient denies fever, chills, chest pain, palpitation, productive cough, skin rash, recent ill contacts, trauma, unilateral leg swelling, calf pain, individual/family history of DVT/bleeding/blood clotting disorders, or known exposure to COVID-19. No prior admission for review. No medication listed at time of admission for reconciliation. Advanced care planning conducted in ED. Consulted vascular for evaluation of intracranial stenosis. Patient was feeling dizzy at home and had some left-sided weakness. Went to the emergency room. Was evaluated for tPA which was not given. He then went to sleep and when he woke up he had complete left-sided hemiparalysis. This has been unchanged since yesterday. Cannot move left fingers, hand, foot, or toes. Cannot hold it against gravity. Reviewed CT scan demonstrating severe intracranial carotid stenosis on the right side. Patient has been on Plavix as an outpatient although his compliance is questionable. Given his stroke, and prior use of Plavix with intracranial carotid stenosis, patient would be best evaluated by neurointerventional specialist to assess if they wish to perform any intervention. Past History Past Medical History: diabetes, hypertension, stroke, other (See HPI) Past Surgical History: No surgical history, Other (Reviewed) Social history: , lives with family. denies: smoking, alcohol abuse, prescription drug abuse Family history: diabetes, hypertension Medications and Allergies Allergies Allergy/AdvReac Type Severity Reaction Status Date / Time No Known Allergies Allergy Verified 09/04/21 13:21 Home Medications Medication Instructions Recorded Confirmed Last Taken Type Acetaminophen [Acetaminophen TAB] 650 mg PO Q6H PRN #30 tablet 09/12/17 Unknown Rx Azithromycin [Zithromax Z-CHUCKY] 1 dose PO DAILY #1 pack 09/12/17 Unknown Rx Fluticasone [Flonase] 1 spray NS QDAY #1 bottle 09/12/17 Unknown Rx Insulin NPH/Regular [Novolin 70/30] 14 unit SQ BIDDIAB #100 ml 09/12/17 Unknown Rx Lispro Insulin [HumaLOG] 1 dose SUB-Q ACHS PRN #100 units 09/12/17 Unknown Rx Loratadine (Nf) [Claritin] 10 mg PO DAILY #30 tablet 09/12/17 Unknown Rx Metoprolol [Lopressor TAB] 25 mg PO BID #60 tablet 09/12/17 09/05/21 09/03/21 21:00 Rx amLODIPine 10 mg PO QDAY #30 tablet 09/12/17 09/05/21 09/03/21 09:00 Rx Active Meds: Active Medications Acetaminophen (Acetaminophen 325 Mg Tab) 650 mg PO Q4H PRN PRN Reason: Pain, Mild (1-3) Amlodipine Besylate (Amlodipine 10 Mg Tab) 10 mg PO QDAY [facility] Last Admin: 09/06/21 09:18 Dose: 10 mg Aspirin (Aspirin Ec 81 Mg Tab) 81 mg PO QDAY [facility] Last Admin: 09/06/21 10:00 Dose: 81 mg Atorvastatin Calcium (Atorvastatin 40 Mg Tab) 40 mg PO QHS [facility] Last Admin: 09/05/21 21:45 Dose: 40 mg Bisacodyl (Bisacodyl 10 Mg Rect Supp) 10 mg [place] QDAY PRN PRN Reason: Constipation Cetirizine HCl (Cetirizine 10 Mg Tab) 10 mg PO DAILY [facility] Last Admin: 09/06/21 09:18 Dose: 10 mg Clopidogrel Bisulfate (Clopidogrel 75 Mg Tab) 75 mg PO QDAY [facility] Last Admin: 09/06/21 10:00 Dose: 75 mg Hydromorphone HCl (Hydromorphone 0.5 Mg/0.5 Ml Inj) 0.5 mg IV Q23H PRN PRN Reason: Pain , Severe (7-10) Insulin Human Regular (Insulin Regular, Human 100 Units/1 Ml) 0 units SUB-Q ACHS [facility]; Protocol Labetalol HCl (Labetalol 20 Mg/4 Ml Inj) 10 mg IV Q6HR PRN PRN Reason: Blood Pressure Last Admin: 09/05/21 16:45 Dose: 10 mg Losartan Potassium (Losartan 25 Mg Tab) 25 mg PO QDAY [facility] Last Admin: 09/06/21 10:00 Dose: 25 mg Magnesium Hydroxide (Magnesium Hydroxide (Mom) Oral Liqd Udc) 30 ml PO Q4H PRN PRN Reason: Constipation Metoclopramide HCl (Metoclopramide 10 Mg Tab) 10 mg PO Q6H PRN PRN Reason: Nausea And Vomiting Metoprolol Tartrate (Metoprolol Tartrate 25 Mg Tab) 50 mg PO BID [facility] Ondansetron HCl (Ondansetron 4 Mg/2 Ml Inj) 4 mg IV Q8H PRN PRN Reason: Nausea And Vomiting Oxycodone/Acetaminophen (Oxycodone /Acetaminophen 5-325mg Tab) 1 tab PO Q16H PRN PRN Reason: Pain, Moderate (4-6) Promethazine HCl (Promethazine 25 Mg Rect Supp) 25 mg [place] Q6H PRN PRN Reason: Nausea And Vomiting Sodium Chloride (Sodium Chloride 0.9% 10 Ml Flush Syringe) 10 ml IV PRN PRN PRN Reason: LINE FLUSH Review of Systems All systems: negative (see HPI) Exam - Constitutional Vitals: Temp Pulse Resp BP Pulse Ox 98.6 F 84 18 182/101 96 09/06/21 08:31 09/06/21 13:00 09/06/21 13:00 09/06/21 08:31 09/06/21 13:00 General appearance: Present: no acute distress - EENT Eyes: Present: EOM intact ENT: hearing intact - Respiratory Respiratory effort: normal - Extremities Extremities: normal temperature, normal color - Abdominal General gastrointestinal: Present: soft, non-tender - Psychiatric Psychiatric: appropriate mood/affect, cooperative - Neurologic Neurologic: other (Left hemiparalysis, full sensation, no motor) Results - Labs CBC & Chem 7: 09/04/21 14:00 09/04/21 14:00 Labs: Abnormal lab results 09/05/21 09/06/21 09/06/21 Range/Units 20:55 09:17 12:00 POC Glucose 173 H 157 H 168 H (70-105) mg/dL Hemoglobin A1c (4-6) % 09/06/21 Range/Units 13:02 POC Glucose (70-105) mg/dL Hemoglobin A1c 6.3 H (4-6) % Assessment and Plan 51-year-old male who presents with left hemiparalysis from right posterior limb of internal capsule stroke. The patient has a right sided carotid intracranial stenosis not accessible to endarterectomy. Patient has a history of being on Plavix. Given the stroke occurred in the setting of antiplatelet therapy, and there is a severe intracranial carotid stenosis in the stroke distribution, recommend neuro interventional evaluation. Discussed this with the hospitalist. Discussed this with the family.
[2021-09-06] MEDS: INSULIN REGULAR, HUMAN 100 UNITS/1 ML SUB-Q SCH ×2 (17:37→21:29)
[2021-09-07 05:14] LABS: Chol/HDL Ratio 3.1 %
[2021-09-07] MEDS: INSULIN REGULAR, HUMAN 100 UNITS/1 ML SUB-Q SCH ×4 (09:39→22:35)
[2021-09-07] MEDS: LOSARTAN 25 MG TAB PO SCH (09:40)
[2021-09-07] MEDS: CLOPIDOGREL 75 MG TAB PO SCH (09:40)
[2021-09-07] MEDS: ASPIRIN EC 81 MG TAB PO SCH (09:40)
[2021-09-07] MEDS: CETIRIZINE 10 MG TAB PO SCH (09:40)
[2021-09-07] MEDS: METOPROLOL TARTRATE 25 MG TAB PO SCH (09:41)
[2021-09-07] MEDS: amLODIPine 10 MG TAB PO SCH (09:41)
[2021-09-07] MEDS ORDERED: METOPROLOL TARTRATE 25 MG TAB PO SCH ×3 (09:44→12:11)
[2021-09-07] MEDS ORDERED: LOSARTAN 25 MG TAB PO SCH ×2 (11:00→11:30)
[2021-09-07] MEDS ORDERED: METOPROLOL TARTRATE 100 MG TAB PO SCH (11:00)
[2021-09-07] MEDS: hydrALAZINE 100 MG TAB PO SCH ×2 (13:32→22:00)
[2021-09-07] MEDS ORDERED: hydrALAZINE 25 MG TAB PO SCH ×2 (14:00)
[2021-09-07] MEDS: METOPROLOL TARTRATE 100 MG TAB PO SCH (21:59)
[2021-09-08] MEDS: hydrALAZINE 100 MG TAB PO SCH ×2 (06:23→14:42)
[2021-09-08] MEDS: INSULIN REGULAR, HUMAN 100 UNITS/1 ML SUB-Q SCH ×2 (08:01→12:00)
[2021-09-08] MEDS ORDERED: LOSARTAN 25 MG TAB PO SCH (10:00)
[2021-09-08] MEDS: ASPIRIN EC 81 MG TAB PO SCH (10:00)
[2021-09-08] MEDS: CLOPIDOGREL 75 MG TAB PO SCH (10:01)
[2021-09-08] MEDS: METOPROLOL TARTRATE 100 MG TAB PO SCH (10:01)
[2021-09-08] MEDS: amLODIPine 10 MG TAB PO SCH (10:01)
[2021-09-08] MEDS: CETIRIZINE 10 MG TAB PO SCH (10:01)
[2021-09-08] MEDS ORDERED: LOSARTAN 25 MG TAB PO ONE (12:00)
[2021-09-08 12:29] VITALS: BP 147/81
--- NOTE | 2021-09-08 13:26 | Progress Note ---
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 We will reach out to [facility] and will continue to follow. 09/07: BP WAS elevated in the morning. Adjusted BP meds and placed for discharge order for home with HH. But Patient Tamara refused to accept him at home. nicole figueroa discharge planning per CM. cont to follow. Assessment and plan: --CVA (cerebral vascular accident) Not a candidate for tPA CVA protocol: CT head, neuro check, seizure precautions, Physical therapy occupational therapy and speech therapy consulted, Follow extensive neuro work-up echocardiogram, carotid Doppler, Continue antiplatelet and statin therapy Telemetry neurologist evaluated the patient Neuro work-up : CT head no acute abnormality noted CTA head; significant narrowing of the cavernous portion of the internal carotid artery on the right no large vessel occlusion appreciated CTA neck no hemodynamically significant stenosis MRI brain 0.9 cm acute infarct oriented along the posterior limb of the right internal capsule There is otherwise moderate chronic microvascular angiopathy as detailed --Right internal carotid stenosis, discussed with vascular and recommended to get improved from interventional neurology. We do not have interventional neurology in this hospital, will reach out to [place], will continue to follow --Left hemiparesis Physical therapy consulted. -- Hypertension Monitor blood pressure every shift, continue medical management. --Diabetes Consistent carbohydrate diet, Accu-Chek, insulin protocol, hypoglycemia protocol. -- Metabolic syndrome Balanced diet, weight reduction, risk factor reduction, supportive care. --Obesity Balanced diet, increase physical activity discharge, -- DVT prophylaxis SCD to bilateral lower extremities while in bed --CHF (congestive heart failure)-May be diastolic, wait for final 2D echo result Continue strict I/O, monitor urine output every shift, daily weight, afterload reduction, blood pressure control, BNP, echocardiogram ordered and pending at time of admission. --Advance care planning Current Visit: Yes Status: Acute Plan to address problem: Disease education conducted, care plan discussed, diagnoses discussed, prognosis discussed, patient is full code. Patient acknowledges understanding and agreement with care plan, +30 minutes. -- Preventative health care Current Visit: Yes Status: Acute Plan to address problem: Patient counseled regarding balanced diet, weight reduction, risk factor re duction, meal planning, medication compliance, outpatient follow-up with primary care physician for all age and risk factor related screening test. +30 minutes. Subjective Date of service: 09/08/21 Interval history: Patient seen and examined. Medical records and medication list reviewed. No acute event overnight noted by the RN. Patient denies any chest pain or difficulty breathing. Patient is tolerating diet. Unable to stand up or ambulate with a cane without the assistance Discussed plan of care at bedside with patient and states that there is no one at home to take care of him. Objective - Exam Narrative Exam: GENERAL: well-developed and well-nourished -[place] male lying on bed appeared to be in no discomfort. HEENT: Normocephalic. Atraumatic. No conjunctival congestion or icterus. Patient has moist mucous membranes. NECK: Supple. Trachea midline. CHEST/LUNGS: Clear to auscultated bilaterally, breathing nonlabored. No wheezes crackles or rhonchi. HEART/CARDIOVASCULAR: Regular in rate and rhythm. S1 and S2 positive. ABDOMEN: Abdomen is soft, nontender. Patient has normal bowel sounds. SKIN: There is no rash. Warm and dry. NEURO: Left-sided weakness. Follows command. MUSCULOSKELETAL: No joint effusion or tenderness. EXTRIMITY: No edema, no cyanosis or clubbing. PSYCH: Cooperative. - Constitutional Vitals: Vital Signs - 12hr 09/08/21 09/08/21 09/08/21 03:38 08:00 10:00 Temperature 98.4 F 98.0 F Pulse Rate 75 88 82 Pulse Rate [ 88 Left Radial] Respiratory 16 18 Rate Blood Pressure 149/88 142/79 Blood Pressure 142/79 [Left] O2 Sat by Pulse 93 97 Oximetry 09/08/21 09/08/21 10:01 12:00 Temperature 97.8 F Pulse Rate 82 80 Pulse Rate [ Left Radial] Respiratory 20 Rate Blood Pressure 142/79 Blood Pressure 147/81 [Left] O2 Sat by Pulse 97 Oximetry - Labs CBC & Chem 7: 09/04/21 14:00 09/04/21 14:00 Labs: Abnormal lab results 09/07/21 09/07/21 09/08/21 Range/Units 16:06 21:58 12:14 POC Glucose 194 H 153 H 169 H (70-105) mg/dL HEART Score - HEART Score Troponin: Troponin T 0.029 ng/mL (0.00-0.029) 09/04/21 14:00
[2021-09-08 13:48] LABS: BUN/Creatinine Ratio 13; Blood Urea Nitrogen 17 mg/dL (9-20); Calcium 9.5 mg/dL (8.4-10.2); Hemolysis Index 3
== END 2021-09-08 14:45 | disposition home health service (06) | DRG 65 ==
LOC: ED 13:12 → 4A 16:50
PROVIDERS: ADMIT Internal Medicine; ATTEND Internal Medicine
DX: I63.9 Cerebral infarction, unspecified (principal); I69.354 Hemiplegia and hemiparesis following cerebral infarction affecting left non-dominant side; E66.2 Morbid (severe) obesity with alveolar hypoventilation; E88.81 Metabolic syndrome and other insulin resistance; Z68.33 Body mass index [BMI] 33.0-33.9, adult; Z71.3 Dietary counseling and surveillance; E11.9 Type 2 diabetes mellitus without complications; I50.9 Heart failure, unspecified; I11.0 Hypertensive heart disease with heart failure; Z83.3 Family history of diabetes mellitus; Z82.49 Family history of ischemic heart disease and other diseases of the circulatory system
CPT/HCPCS: 36415; 70450; 70496; 70498; 70551; 80048; 80053; 80061; 80307; 81001; 82550; 82553; 82962; 83036; 83880; 84484; 85025; 85610; 85670; 85730; 93005; 93306; G0378; J3490; Q9967; C8929; J1815; J7030